=== PATIENT | female | born 2000 | race Two or more races ===

== ENCOUNTER 2024-06-12 02:18 | Inpatient (IN) | payer OTHER, SELFPAY ==
--- OUTSIDE RECORDS SUMMARY | 2024-06-12 02:25 | XMS_ITS | Encounter Summary ---
Author Organization [facility] r Address [address] [place] [address] Phone Care Team Providers Care Electronic Service Technician Name Role Phone Yin Keen MD, MPH Unavailable [phone] Pcp-Confirmed, No Primary Care Provider Unavaila Tj Villagran DO Primary Care Provider [phone] Rochelle Neville MD Unavailable Reason for Visit * Reason Onset Date Comments Medication Refill 10/15/2022 Encounter Details Date Type Department Care Team (Late st Contact Info) Description 10/15/2022 Refill [facility] [address] [place] [address] [place] [address] Breakthrough seizure Social History Tobacco Use Types Packs/Day Years Used Date Smoking Tobacco: Unknown Housing Answer Date Recorded What is your living situation today? I have a [facility] [employer] [employer] place to live 09/24/2022 Sex and Gender Information Value Date Recorded Sex Assigned at Female 07/18/2022 1:14 PM EDT Gender Identity Female 10/08/2022 11:00 AM EDT Sexual Orientation Patient chooses not to answer 04/30/2023 3:04 PM EST documented as of this encounter Miscellaneous Notes * Telephone Encounter - Erin Hill CPhT - 10/15/2022 4:01 PM EDT Veronica, This patient is enrolled in Specialty Care Management. If appropriate, can you please send refills to [facility]? Thank You, Erin Hill documented in this encounter Plan of Treatment Upcoming Encounters Date Type Department Care Team (Late st Contact Info) Description 09/09/2024 1:40 PM EDT Office Visit Cardiology [address] [place] [address] 3 [place] [phone] Leoncio Andrews MD, MPH 7[address] [facility], 3rd [place] [phone] documented as of this encounter Visit Diagnoses Diagnosis Breakthrough seizure documented in this encounter Care Teams Electronic Service Technician Relationship Specialty Start Date End Date Yin Keen MD, MPH [address] [facility] [place] [address] [place] [phone] PCP - Insurance 01/10/22 09/07/23 Pcp-Confirmed, No PCP - General 02/07/23 09/06/23 Tj Guerrero DO [place], [place] PCP - General Family Medicine 09/07/23 Rochelle Neville MD [place], [place] PCP - Insurance Family Medicine 09/08/23 documented as of this encounter
--- OUTSIDE RECORDS SUMMARY | 2024-06-12 02:25 | XMS_ITS | Encounter Summary ---
Author Organization [facility] Address 1 [place] [address] Phone Care Team Providers Care Marketing Content Specialist Name Role Phone Tj Guerrero DO Primary Care Provider Rochelle Neville MD Unavailable Reason for Visit * Reason Onset Date Comments Other Clinical 12/15/2023 Encounter Details Date Type Department Care Team (Late st Contact Info) Description 12/15/2023 Telephone Family Medicine [address] [place] [address] [place] [address] Other Clinical Social History Tobacco Use Types Packs/Day Years Used Date Smoking Tobacco: Never Smokeless Tobacco: Never Alcohol Use Standard Drinks/Week Comments Never 0 (1 standard drink = 0.6 oz pur e alcohol) Housing Answer Date Recorded What is your living situation today? I have a [facility] place to live 11/11/2023 Sex and Gender Information Value Date Recorded Sex Assigned at Female 07/18/2022 1:14 PM EDT Gender Identity Female 10/08/2022 11:00 AM EDT Sexual Orientation Patient chooses not to answer 04/30/2023 3:04 PM EST documented as of this encounter Miscellaneous Notes * Telephone Encounter - Antonella Gong RN - 12/15/2023 11:25 AM EDT Message to PCP and the CCM Team to review and determine plan Future Appointments Date Time Provider Department Center 12/23/2023 11:20 AM Tj Guerrero DO INTERNET ASSESSOR FAM MED None 09/09/2024 1:40 PM Leoncio Andrews MD, MPH PRE CARDIO None * Telephone Encounter - Janet Lazaro - 12/15/2023 11:05 AM EDT Patient Reported Reason for Call Patient presents with Other Clinical Fact Finding Questions Reason for call comments field updated: Yes [facility] is calling to update pt's PCP that a nurse went to visit pt and was told amanda and that she didn't need any VNA services. If there are any questions regarding this matter call CB [phone] documented in this encounter Plan of Treatment Upcoming Encounters Date Type Department Care Team (Late st Contact Info) Description 09/09/2024 1:40 PM EDT Office Visit Cardiology 732 [facility] 3 [place] [phone] Loencio Andrews MD, MPH 732 [facility], 3rd [place] [phone] documented as of this encounter Visit Diagnoses Not on filedocumented in this encounter Care Teams Marketing Content Specialist Relationship Specialty Start Date End Date Tj Guerrero DO [address] [facility] [address] [place], [place] PCP - General Family Medicine 09/07/23 Rochelle Neville MD [place] [phone] PCP - Insurance Family Medicine 09/08/23 documented as of this encounter
--- OUTSIDE RECORDS SUMMARY | 2024-06-12 02:25 | XMS_ITS | Encounter Summary ---
Author Organization [facility] r Address 1 [place] [address] Phone Care Team Providers Care Center Hole Reamer Name Role Phone Tj Guerrero DO Primary Care Provider [phone] Rochelle Neville MD Unavailable Encounter Details Date Type Department Care Team (Late Contact Info) Description 01/05/2024 Telephone Family Medicine [address] [place] [address] [place] [address] Social History Tobacco Use Types Packs/Day Years Used Date Smoking Tobacco: Never Smokeless Tobacco: Never Alcohol Use Standard Drinks/Week Comments Never 0 (1 standard drink = 0.6 oz pur e alcohol) Housing Answer Date Recorded What is your living situation today? I have a [facility] place to live 11/11/2023 Sex and Gender Information Value Date Recorded Sex Assigned at Female 07/18/2022 1:14 PM EDT Gender Identity Female 10/08/2022 11:00 AM EDT Sexual Orientation Patient chooses not to answer 04/30/2023 3:04 PM EST documented as of this encounter Miscellaneous Notes * Telephone Encounter - Nathan King - 01/05/2024 1:28 PM EDT On 01/05/2024 after spending over two hours with [employer], patient was not granted for transportation services, because their reasons was not clear after confirming all patient information was up to date. [place] a result with [place] [id number] patient will seek help through [facility] in [place] to contact [facility] again, to have a good reason why she was not granted transportation services to her appointments. Patient is a green card keyes and I confirmed that with [employer] to. documented in this encounter Plan of Treatment Upcoming Encounters Date Type Department Care Team (Late st Contact Info) Description 09/09/2024 1:40 PM EDT Office Visit Cardiology 732 [facility] 3 [place] [address] Leoncio Andrews MD, MPH 732 [facility], 3rd [place] [phone] documented as of this encounter Visit Diagnoses Not on filedocumented in this encounter Care Teams Center Hole Reamer Relationship Specialty Start Date [place] [address] PCP - General Family Medicine 09/07/23 [place] [address] PCP - Insurance Family Medicine 09/08/23 documented as of this encounter
--- OUTSIDE RECORDS SUMMARY | 2024-06-12 02:25 | XMS_ITS | Encounter Summary ---
Author Organization [facility] Address 1 [place] [address] Phone Care Team Providers Care Supervisor Filtration Name Role Phone YolandaTj Primary Care Provider [phone] Rochelle Neville MD Unavailable Reason for Visit * Reason Onset Date Comments Forms 04/16/2024 Encounter Details Date Type Department Care Team (Late st Contact Info) Description 04/16/2024 Telephone Family Medicine [address] [place] [address] Pcp-Confirmed, No Forms Social History Tobacco Use Types Packs/Day Years Used Date Smoking Tobacco: Never Smokeless Tobacco: Never Alcohol Use Standard Drinks/Week Comments Never 0 (1 standard drink = 0.6 oz pur e alcohol) Housing Answer Date Recorded What is your living situation today? I have a [facility] place to live 02/18/2024 Medications Answer Date Recorded Do you have trouble paying for prescriptions? No 02/18/2024 Utilities Answer Date Recorded Do you have trouble paying f or utilites (heat, electricity, internet, or phone bill)? No 02/18/2024 Caregiving [place] Answer Date Recorded Taking care of a child, elder, or disabled perso n No 02/18/2024 Employment Answer Date Recorded Looking for a job, changing jobs, or getting job training No 02/18/2024 Education Answer Date Recorded Getting more education or he lp with school (early child education under 5 years old, high school diploma or GED, college level education) No 02/18/2024 Food Answer Date Recorded Within the past 12 months, w ere you worried whether your food would run out before you got money to buy more? Never true 1 04/20/2023 Within the past 12 months, d id the food you bought just didn't last and you didn't have money to get more? Never true 01/2024 Transportation Answer Date Recorded Do you have trouble getting transportation to medical appointments? No 02/18/2024 Social Support Answer Date Recorded Getting more education or he lp with school (early child education under 5 years old, high school diploma or GED, college level education) No 02/18/2024 Immigration Answer Date Recorded Accessing resources to address immigration needs No 02/18/2024 Finance Answer Date Recorded Managing or growing your mon ey (open a bank account, file taxes, save money, improve credit, buy a house)? No 02/18/2024 Technology Answer Date Recorded Using a computer or phone to manage your health (use [employer], see medical records, make appointments, get refills, message care team) No 02/18/2024 Sex and Gender Information Value Date Recorded Sex Assigned at Female 07/18/2022 1:14 PM EDT Gender Identity Female 10/08/2022 11:00 AM EDT Sexual Orientation Patient chooses not to answer 04/30/2023 3:04 PM EST documented as of this encounter Miscellaneous Notes * Telephone Encounter - Martine Carney - 04/16/2024 4:24 PM EST Patient Reported Reason for Call Patient presents with Forms Fact Finding Questions Type of form requested: Disability How was form received: in person Preferred method for return: mail Pt can be reached at [phone]./Jerri mclaughlin. Notes she will be dropping of the Disability this Friday Pt will like a call back when form is ready for parts picker. Due 05/05/24. Adv 14 dyays documented in this encounter Plan of Treatment Upcoming Encounters Date Type Department Care Team (Late st Contact Info) Description 09/09/2024 1:40 PM EDT Office Visit Cardiology 732 [facility] 3 [place] [address] Leoncio Andrews MD, MPH 732 [facility], 3rd [place] [address] documented as of this encounter Visit Diagnoses Not on filedocumented in this encounter Care Teams Supervisor Filtration Relationship Specialty Start Date [place] [address] PCP - General Family Medicine 09/07/23 [place] [address] PCP - Insurance Family Medicine 09/08/23 documented as of this encounter
--- OUTSIDE RECORDS SUMMARY | 2024-06-12 02:25 | XMS_ITS | Encounter Summary ---
Author Organization [facility] Address 1 [place] [address] Phone Care Team Providers Care Emergency Medicine Physician Assistant Name Role Phone YolandaTj Primary Care Provider Rochelle Neville MD Unavailable Reason for Visit * Reason Onset Date Comments Appointment 02/03/2024 Encounter Details Date Type Department Care Team ([facility] Contact Info) Description 02/03/2024 Telephone Pediatric Neurology 801 [facility], Floor 7 [place] [address] Kain Scott MD [address] [phone] Appointment Social History Tobacco Use Types Packs/Day Years Used Date Smoking Tobacco: Never Smokeless Tobacco: Never Alcohol Use Standard Drinks/Week Comments Never 0 (1 standard drink = 0.6 oz pur e alcohol) Housing Answer Date Recorded What is your living situation today? I have a [facility] place to live 11/11/2023 Sex and Gender Information Value Date Recorded Sex Assigned at Female 07/18/2022 1:14 PM EDT Gender Identity Female 10/08/2022 11:00 AM EDT Sexual Orientation Patient chooses not to answer 04/30/2023 3:04 PM EST documented as of this encounter Miscellaneous Notes * Telephone Encounter - Argentina Guzmán - 02/03/2024 2:24 PM EST Patient Reported Reason for Call Patient presents with Appointment Patient's parent calling to schedule an appointment Please assist Can be reached at [phone] Adv of tat documented in this encounter Plan of Treatment Upcoming Encounters Date Type Department Care Team (Late st Contact Info) Description 09/09/2024 1:40 PM EDT Office Visit Cardiology 732 [facility] 3 [place] [phone] Leoncio Andrews MD, MPH 732 [facility], 3rd [place] [phone] documented as of this encounter Visit Diagnoses Not on filedocumented in this encounter Care Teams Emergency Medicine Physician Assistant Relationship Specialty Start Date End Date [place] [address] PCP - General Family Medicine 09/07/23 [place] [address] PCP - Insurance Family Medicine 09/08/23 documented as of this encounter
--- OUTSIDE RECORDS SUMMARY | 2024-06-12 02:25 | XMS_ITS | Encounter Summary ---
Author Organization [facility] r Address 1 [place] [address] Phone Care Team Providers Care Plater Supervisor Name Role Phone Yin Keen MD, MPH Unavailable [phone] Pcp-Confirmed, No Primary Care Provider Unavaila Tj Villagran DO Primary Care Provider [phone] Rochelle Neville MD Unavailable Reason for Visit * Reason Onset Date Comments Medication Refill 11/21/2022 Encounter Details Date Type Department Care Team (Late st Contact Info) Description 11/21/2022 Refill [facility] [address] [place] [address] Erin Hill, assistant [place] [address] Social History Tobacco Use Types Packs/Day Years Used Date Smoking Tobacco: Unknown Housing Answer Date Recorded What is your living situation today? I have a [facility] place to live 09/24/2022 Sex and Gender Information Value Date Recorded Sex Assigned at Female 07/18/2022 1:14 PM EDT Gender Identity Female 10/08/2022 11:00 AM EDT Sexual Orientation Patient chooses not to answer 04/30/2023 3:04 PM EST documented as of this encounter Miscellaneous Notes * Telephone Encounter - Erin Hill CPhT - 11/25/2022 2:02 PM EDT Clemente Moore, Can the keppra please be removed from the patients med list if they are no longer taking it? Thank you, Erin * Telephone Encounter - Teresa Best RN - 11/21/2022 3:44 PM EDT No longer on Keppra per last note Impression: -As did not keppra for one month will stop it -. ?? * Telephone Encounter - Erin Hill CPhT - 11/21/2022 2:53 PM EDT Veronica, This patient is enrolled in Specialty Care Management. If appropriate, can you please send refills to [facility]? Thank You, Erin Hill documented in this encounter Plan of Treatment Upcoming Encounters Date Type Department Care Team (Late st Contact Info) Description 09/09/2024 1:40 PM EDT Office Visit Cardiology 732 [facility] 3 [place] [address] Leoncio Andrews MD, MPH [address] [facility], 3rd [place] [address] documented as of this encounter Visit Diagnoses Not on filedocumented in this encounter Care Teams Plater Supervisor Relationship Specialty Start Date End Date Yin Keen MD, MPH [address] [facility] [address] [address] [place] - [place] [phone] PCP - Insurance 01/10/22 09/07/23 Pcp-Confirmed, No PCP - General 02/07/23 09/06/23 [place] [address] PCP - General Family Medicine 09/07/23 [place] [address] PCP - Insurance Family Medicine 09/08/23 documented as of this encounter
--- OUTSIDE RECORDS SUMMARY | 2024-06-12 02:25 | XMS_ITS | Encounter Summary ---
Author Organization [facility] Address 1 [place] [address] Phone Care Team Providers Care Parts Puller Name Role Phone YolandaTj Primary Care Provider [phone] Rochelle Neville MD Unavailable Reason for Visit * Reason Onset Date Comments Appointment 12/10/2023 Encounter Details Date Type Department Care Team ([facility] Contact Info) Description 12/10/2023 Telephone Pediatric Neurology 801 [facility], Floor 7 [place] [address] Kain Scott MD [address] [phone] Appointment Social History Tobacco Use Types Packs/Day Years Used Date Smoking Tobacco: Never Smokeless Tobacco: Never Alcohol Use Standard Drinks/Week Comments Never 0 (1 standard drink = 0.6 oz pur e alcohol) Housing Answer Date Recorded What is your living situation today? I have a [facility] place to live 11/11/2023 Sex and Gender Information Value Date Recorded Sex Assigned at Female 07/18/2022 1:14 PM EDT Gender Identity Female 10/08/2022 11:00 AM EDT Sexual Orientation Patient chooses not to answer 04/30/2023 3:04 PM EST documented as of this encounter Miscellaneous Notes * Telephone Encounter - Dedra Chenesias - 12/10/2023 11:42 AM EDT Patient Reported Reason for Call Patient presents with Appointment Pt is calling in to reschedule the appt she missed on 12/03 Adv tat documented in this encounter Plan of Treatment Upcoming Encounters Date Type Department Care Team (Late st Contact Info) Description 09/09/2024 1:40 PM EDT Office Visit Cardiology 732 [facility] 3 [place] [phone] Leoncio Andrews MD, MPH 732 [facility], [address]rd [place] [phone] documented as of this encounter Visit Diagnoses Not on filedocumented in this encounter Care Teams Parts Puller Relationship Specialty Start Date [place] [address] PCP - General Family Medicine 09/07/23 [place] [address] PCP - Insurance Family Medicine 09/08/23 documented as of this encounter
--- OUTSIDE RECORDS SUMMARY | 2024-06-12 02:25 | XMS_ITS | Encounter Summary ---
Author Organization [facility] r Address 1 [place] [address] Phone Care Team Providers Care Role Player Name Role Phone Tj Guerrero DO Primary Care Provider Rochelle Neville MD Unavailable Encounter Details Date Type Department Care Team (Late st Contact Info) Description 05/12/2024 Telephone General Internal Medicine - [place] [address] [place] [address] [address] [place] [address] [place] [address] Social History Tobacco Use Types Packs/Day Years Used Date Smoking Tobacco: Never Smokeless Tobacco: Never Alcohol Use Standard Drinks/Week Comments Never 0 (1 standard drink = 0.6 oz pur e alcohol) Housing Answer Date Recorded What is your living situation today? I have a [facility] place to live 02/18/2024 Medications Answer Date Recorded Do you have trouble paying for prescriptions? No 02/18/2024 Utilities Answer Date Recorded Do you have trouble paying f or utilites (heat, electricity, internet, or phone bill)? No 02/18/2024 Caregiving [place] Answer Date Recorded Taking care of a child, elder, or disabled maryo n No 02/18/2024 Employment Answer Date Recorded [...] or phone to manage your health (use [employer], see medical records, make appointments, get refills, message care team) No 02/18/2024 Sex and Gender Information Value Date Recorded Sex Assigned at Female 07/18/2022 1:14 PM EDT Gender Identity Female 10/08/2022 11:00 AM EDT Sexual Orientation Patient chooses not to answer 04/30/2023 3:04 PM EST documented as of this encounter Miscellaneous Notes * Telephone Encounter - Shree Delgado CPhT - 05/26/2024 2:09 PM EDT [facility] Medication Access Follow-Up Patient picked up their 90-day prescription for their multivitamin from [facility]. Follow-Up: N/A Shree Delgado CPhT * Telephone Encounter - Shree Delgado CPhT - 05/17/2024 3:59 PM EDT [facility] Medication Access Follow-Up Patient's prescription for epidiolex was delivered to them from [facility] via [employer] (tracking number: [id number]). Patient was called and left a voicemail informing them that their prescription for multivitamin is ready for pickup at their [facility]. Follow-Up: Will ensure med access by 05-25-24 Shree Delgado CPhT * Telephone Encounter - Shree Delgado CPhT - 05/12/2024 2:02 PM EST [facility] [place] Medication Adherence Outreach Appointment Review: Appointments between 04-13-24 and 05-12-24 Medication-Related Follow-Up Points: New Medications: N/A Changed Medications: N/A Discontinued Medications: N/A Were medication changes communicated with pharmacy? N/A Prescription Claims Review: Claims history suggests bolded medications below are scheduled medications that are overdue for refill: Current Outpatient Medications Medication Sig Dispense Refill Last Fill Date Comments cannabidiol extract (EPIDIOLEX) 100 mg/mL oral solution TAKE 0.5ML BY MOUTH TWICE A DAY FOR ONE WEEK, 1ML TWICE A DAY FOR 1 WEEK, 1.5ML TWICE A DAY FOR 1 WEEK, THEN 2ML TWICE A DAY 120 mL 0 02-25-24, [facility], 30 day supply cholecalciferol (VITAMIN D3) 25 mcg (1000 unit) tablet Take 1 tablet (1,000 Units total) by mouth daily. 90 tablet 05-05-24, [facility] ([phone]), 90 day supply diclofenac (VOLTAREN) 1% gel Apply 4 g topically 4 (four) times a day. Apply to neck and shoulders. 100 g 2 03-04-24, [facility], 6 day supply Acute med divalproex (DEPAKOTE) [address] tablet Take 1 tablet (500 mg total) by mouth nightly. October refill 30 tablet 05-07-24, [facility] ([phone]), 30 day supply folic acid, vitamin B9, (FOLVITE) 1 mg tablet Take 1 tablet (1 mg total) by mouth daily. 90 tablet 05-07-24, [facility] ([phone]), 90 day supply lacosamide 200 mg Tab Take 200 mg by mouth 2 (two) times a day. 60 tablet 05-07-24, [facility] ([phone]), 30 day supply levETIRAcetam (KEPPRA) 1000 MG tablet Take 2 tablets (2,000 mg total) by mouth 2 (two) times a day. 120 tablet 05-05-24, [facility] ([phone]), 30 day supply midazolam (NAYZILAM) 5 mg/spray (0.1 mL) [place] 1 spray as a single dose in 1 nostril as needed for seizure; may repeat same dose in 10 minutes in alternate nostril 2 each 05-07-24, [facility] ([phone]), 6 day supply PRN multivitamin (THERAGRAN) per tablet Take 1 tablet by mouth daily. 90 tablet 2 01-08-24, [facility], day supply QUEtiapine (SEROQUEL) 25 MG tablet Take 1 tablet (25 mg total) by mouth 2 (two) times a day. Octoberrefill 60 tablet 05-05-24, [facility] ([phone]), 30 day supply zonisamide 100 MG capsule Take 2 capsule (200 mg) by mouth at night 60 capsule 05-05-24, [facility] ([phone]), 30 day supply No current facility-administered medications for this visit. Per review of [facility] medication history, the following prescriptions have been filled within the past 30 days, however medication is not on [facility] med list: N/A Outreach: Patient verified their address and date of . [facility] was emailed in order to process the patient's prescription for Epidolex. Prescription for multivitamin will be requested. Follow-Up: Will ensure med access by 05-18-24 Shree Delgado CPhT documented in this encounter Plan of Treatment Upcoming Encounters Date Type Department Care Team (Late st Contact Info) Description 09/09/2024 1:40 PM EDT Office Visit Cardiology 732 [facility] 3 [place] [address] Leoncio Andrews MD, MPH 732 [facility], [address] [place] [phone] documented as of this encounter Visit Diagnoses Not on filedocumented in this encounter Care Teams Role Player Relationship Specialty Start Date End [place] [address] PCP - General Family Medicine 09/07/23 [place] [address] PCP - Insurance Family Medicine 09/08/23 documented as of this encounter
--- OUTSIDE RECORDS SUMMARY | 2024-06-12 02:25 | XMS_ITS | Encounter Summary ---
Author Organization [facility] Address 1 [place] [address] Phone Care Team Providers Care Press Setup Operator Name Role Phone Yin Keen MD, MPH Unavailable [phone] Pcp-Confirmed, No Primary Care Provider Unavaila Tj Villagran DO Primary Care Provider [phone] Rochelle Neville MD Unavailable Reason for Visit * Reason Onset Date Comments Medication Refill 02/19/2023 Lacosamide Encounter Details Date Type Department Care Team (Late st Contact Info) Description 02/19/2023 Telephone Family Medicine [address] [place] [address] Rafa Linder RPh Medication Refill (Lacosamide) Social History Tobacco Use Types Packs/Day Years Used Date Smoking Tobacco: Unknown Housing Answer Date Recorded What is your living situation today? I have a [facility] place to live 02/13/2023 Sex and Gender Information Value Date Recorded Sex Assigned at Female 07/18/2022 1:14 PM EDT Gender Identity Female 10/08/2022 11:00 AM EDT Sexual Orientation Patient chooses not to answer 04/30/2023 3:04 PM EST documented as of this encounter Miscellaneous Notes * Telephone Encounter - Rafa Linder RPh - 02/19/2023 4:38 PM EST Pharmacy requesting new order for lacosamide. Per [facility] transport manager, requested [facility] transfer all patient's prescriptions from [facility] to [facility]. [facility] unable to transfer lacosamide as it is a controlled substance and most recent order has not been filled yet (not eligible for transfer). documented in this encounter Plan of Treatment Upcoming Encounters Date Type Department Care Team (Late st Contact Info) Description 09/09/2024 1:40 PM EDT [facility] [place] [phone] Leoncio Andrews MD, MPH 732 [facility], 3rd [place] [phone] documented as of this encounter Visit Diagnoses Not on filedocumented in this encounter Care Teams Press Setup Operator Relationship Specialty Start Date End Date Yin Keen MD, MPH [address] [place] [address] [place] [phone] PCP - Insurance 01/10/22 09/07/23 Pcp-Confirmed, No PCP - General 02/07/23 09/06/23 Tj Guerrero DO [place], [place] PCP - General Family Medicine 09/07/23 Rochelle Neville MD [place], [place] PCP - Insurance Family Medicine 09/08/23 documented as of this encounter
--- OUTSIDE RECORDS SUMMARY | 2024-06-12 02:25 | XMS_ITS | Encounter Summary ---
Author Organization [facility] r Address 1 [place] [address] Phone Care Team Providers Care Biomedical Equipment Support Specialist Name Role Phone Yin Keen MD, MPH Unavailable [phone] Pcp-Confirmed, No Primary Care Provider Unavaila Tj Villagran DO Primary Care Provider [phone] Rochelle Neville MD Unavailable Encounter Details Date Type Department Care Team (Late st Contact Info) Description 03/19/2023 Patient Outreach [address] [address] [place] [address] Social History Tobacco Use Types Packs/Day Years Used Date Smoking Tobacco: Never Smokeless Tobacco: Never Alcohol Use Standard Drinks/Week Comments Never 0 (1 standard drink = 0.6 oz pur e alcohol) Housing Answer Date Recorded What is your living situation today? I have a [facility] to live 02/13/2023 Sex and Gender Information Value Date Recorded Sex Assigned at Female 07/18/2022 1:14 PM EDT Gender Identity Female 10/08/2022 11:00 AM EDT Sexual Orientation Patient chooses not to answer 04/30/2023 3:04 PM EST documented as of this encounter Plan of Treatment Upcoming Encounters Date Type Department Care Team (Late st Contact Info) Description 09/09/2024 1:40 PM EDT Office Visit Cardiology 732 [facility] FLR 3 [place] [phone] Lenocio Andrews MD, MPH [facility], 3rd [place] [address] documented as of this encounter Visit Diagnoses Not on filedocumented in this encounter Care Teams Biomedical Equipment Support Specialist Relationship Specialty Start Date End Date Yin Keen MD, MPH [address] [place] [address] [place] [address] [place] [phone] PCP - Insurance 01/10/22 09/07/23 Pcp-Confirmed, No PCP - General 02/07/23 09/06/23 [place] [address] PCP - General Family Medicine 09/07/23 [place] [address] PCP - Insurance Family Medicine 09/08/23 documented as of this encounter
--- OUTSIDE RECORDS SUMMARY | 2024-06-12 02:25 | XMS_ITS | Encounter Summary ---
Author Organization [facility] Address 1 [place] [address] Phone Care Team Providers Care Dough Molder Name Role Phone YolandaTj Primary Care Provider [phone] Rochelle Neville MD Unavailable Encounter Details Date Type Department Care Team (Late st Contact Info) Description 11/14/2023 Documentation [facility] DEPARTMENT 1 [place] [phone] Onbase, Scan Social History Tobacco Use Types Packs/Day Years Used Date Smoking Tobacco: Never Smokeless Tobacco: Never Alcohol Use Standard Drinks/Week Comments Never 0 (1 standard drink = 0.6 oz pur e alcohol) Housing Answer Date Recorded What is your living situation today? I have a [facility] place to live 11/11/2023 Sex and Gender [...] 1:40 PM EDT [facility] [address] [facility] [place] [address] Leoncio Andrews MD, MPH 732 [facility], 3rd [place] [address] documented as of this encounter Visit Diagnoses Not on filedocumented in this encounter Care Teams Dough Molder Relationship Specialty Start Date [place] [address] PCP - General Family Medicine 09/07/23 [place] [address] PCP - Insurance Family Medicine 09/08/23 documented as of this encounter
--- OUTSIDE RECORDS SUMMARY | 2024-06-12 02:25 | XMS_ITS | Encounter Summary ---
Author Organization [facility] r Address 1 [place] [address] Phone Care Team Providers Care School Age Lead Teacher Name Role Phone CelsoTj lozoya Primary Care Provider Rochelle Neville MD Unavailable Reason for Visit * Reason Onset Date Comments Other Clinical 12/15/2023 Clinical call Encounter Details Date Type Department Care Team (Late st Contact Info) Description 12/15/2023 Telephone Child & Adolescent Psychiatry [address] [facility], Floor 7 [place] [address] Precious Carrasco, [place] [address] Other Clinical (Clinical call ) Social History Tobacco Use Types Packs/Day Years Used Date Smoking Tobacco: Never Smokeless Tobacco: Never Alcohol Use Standard Drinks/Week Comments Never 0 (1 standard drink = 0.6 oz pur e alcohol) Housing Answer Date Recorded What is your living situation today? [facility] live 11/11/2023 Sex and Gender Information Value Date Recorded Sex Assigned at Female 07/18/2022 1:14 PM EDT Gender Identity Female 10/08/2022 11:00 AM EDT Sexual Orientation Patient chooses not to answer 04/30/2023 3:04 PM EST documented as of this encounter Miscellaneous Notes * Telephone Encounter - Suzanne Suazo - 12/15/2023 11:13 AM EDT Patient Reported Reason for Call Patient presents with Other Clinical Clinical call Fact Finding Questions Reason for call comments field updated: Yes Rodolfo Maher (A) Home health services called looking to speak with Precious Carrasco. Teralaz stated a nurse went to visit pt at her home and pt refused services. Rodolfo would like to connect with Precious Carrasco regarding this and closing out the referral if pt isn't interested. Rodolfo is going to connect with the family medicine department as well to speak with pt pcp. CB# [phone] ADV TAT documented in this encounter Plan of Treatment Upcoming Encounters Date Type Department Care Team (Late st Contact Info) Description 09/09/2024 1:40 PM EDT Office Visit Cardiology [address] [place] [phone] Leoncio Andrews MD, MPH 732 [facility], 3rd [place] [phone] documented as of this encounter Visit Diagnoses Not on filedocumented in this encounter Care Teams School Age Lead Teacher Relationship Specialty Start Date End Date Tj Guerrero DO [place], [place] PCP - General Family Medicine 09/07/23 Rochelle Neville MD [place], [place] PCP - Insurance Family Medicine 09/08/23 documented as of this encounter
--- OUTSIDE RECORDS SUMMARY | 2024-06-12 02:25 | XMS_ITS | Encounter Summary ---
Author Organization [facility] Address 1 [place] [address] Phone Care Team Providers Care Electric Pile Driver Operator Name Role Phone Lupe Hudson PINMAKER Unavailable Unavailable Luis Avila MD Unavailable Lupe Hudson PINMAKER Unavailable Unavailable Travis Bruno MD Unavailable Travis Bruno MD Unavailable Yin Keen MD, MPH Unavailable [phone] Pcp-Confirmed, No Primary Care Provider Unavaila Tj Villagran DO Primary Care Provider [phone] Rochelle Neville MD Unavailable Reason for Visit * Reason Comments Automated Refill Request Encounter Details Date Type Department Care Team (Late st Contact Info) Description 02/08/2021 Refill [facility] [address] [place] [address] Elodia Justice MD Social History Tobacco Use Types Packs/Day Years Used Date Smoking Tobacco: Unknown Sex and Gender Information Value Date Recorded Sex Assigned at Female 07/18/2022 1:14 PM EDT Gender Identity Female 10/08/2022 11:00 AM EDT Sexual Orientation Patient chooses not to answer 04/30/2023 3:04 PM EST COVID-19 Exposure Response Date Recorded In the last month, have you been in contact with someone who was confirmed or suspected to have Coronavirus / COVID-19? No / Unsure 02/07/2021 12:46 PM EST documented as of this encounter Miscellaneous Notes * Telephone Encounter - Karin Pena RN - 02/08/2021 3:32 PM EST Script written while inpatient; Not PCP documented in this encounter Plan of Treatment Upcoming Encounters Date Type Department Care Team ([facility] st Contact Info) Description 09/09/2024 1:40 PM EDT Office Visit Cardiology 732 [facility] 3 [place] [address] Leoncio Andrews MD, MPH 732 [facility], 3rd [place] [address] documented as of this encounter Visit Diagnoses Not on filedocumented in this encounter Additional Health Concerns Infection Onset Date Last Indicated Resolved Time COVID-19 Rule Out 02/27/2021 02/27/2021 02/27/2021 10:10 PM EST COVID-19 Rule Out 12/26/2021 12/26/2021 12/26/2021 4:12 AM EDT documented as of this encounter Care Teams Electric Pile Driver Operator Relationship Specialty Start Date End Date Lupe Hudson NP PCP - Insurance 01/31/21 02/12/21 Luis Avila MD [address] [place] [phone] PCP - Insurance 02/13/21 05/06/21 Lupe Hudson NP PCP - Insurance 05/07/21 07/10/21 Travis Bruno MD 732 [facility], [address] [place] [phone] PCP - Insurance 07/11/21 11/21/21 Travis Bruno MD 732 [facility], [address] [place] [phone] PCP - Insurance 11/28/21 01/09/22 Yin Keen MD, MPH [address] [place] [address] - [place] [address] PCP - Insurance 01/10/22 09/07/23 Pcp-Confirmed, No PCP - General 02/07/23 09/06/23 [place] [address] PCP - General Family Medicine 09/07/23 [place] [address] PCP - Insurance Family Medicine 09/08/23 documented as of this encounter
--- OUTSIDE RECORDS SUMMARY | 2024-06-12 02:25 | XMS_ITS | Encounter Summary ---
Author Organization [facility] Address 1 [place] [address] Phone Care Team Providers Care Counter Clerk Name Role Phone Yin Keen MD, MPH Unavailable [phone] Pcp-Confirmed, No Primary Care Provider Unavaila Tj Villagran DO Primary Care Provider [phone] Rochelle Neville MD Unavailable Reason for Visit * Reason Onset Date Comments Medication Refill 11/18/2022 Encounter Details Date Type Department Care Team (Late st Contact Info) Description 11/18/2022 Refill [facility] Department [address] [place] [address] Tahmina Campo MD Social History Tobacco Use Types Packs/Day Years Used Date Smoking Tobacco: Unknown Housing Answer Date Recorded What is your living situation today? I have a [facility] place to live 09/24/2022 Sex and Gender [...] 1:40 PM EDT Office Visit Cardiology 732 [facility] 3 [place] [phone] Leoncio Andrews MD, MPH 732 [facility], 3rd [place] [phone] documented as of this encounter Visit Diagnoses Not on filedocumented in this encounter Care Teams Counter Clerk Relationship Specialty Start Date End Date Yin Keen MD, MPH [address] [place] [address] [place] [address] [place] [phone] PCP - Insurance 01/10/22 09/07/23 Pcp-Confirmed, No PCP - General 02/07/23 09/06/23 [place] [address] PCP - General Family Medicine 09/07/23 [place] [address] PCP - Insurance Family Medicine 09/08/23 documented as of this encounter
--- OUTSIDE RECORDS SUMMARY | 2024-06-12 02:25 | XMS_ITS | Encounter Summary ---
Author Organization [facility] Address 1 [place] [address] Phone Care Team Providers Care Net Software Engineer Name Role Phone CelsoTj lozoya Primary Care Provider [phone] Rochelle Neville MD Unavailable Encounter Details Date Type Department Care Team (Late st Contact Info) Description 02/09/2024 Telephone Family [place] [address] Teofilo Fox [facility] Social History Tobacco Use Types Packs/Day Years Used Date Smoking Tobacco: Never Smokeless Tobacco: Never Alcohol Use Standard Drinks/Week Comments Never 0 (1 standard drink = 0.6 oz pur e alcohol) Housing Answer Date Recorded What is your living situation today? I have a [facility] place to live 11/11/2023 Sex and [...] 1:40 PM EDT Office Visit Cardiology 732 [facility] 3 [place] [address] Leoncio Andrews MD, MPH 732 [facility], 3rd [place] [address] documented as of this encounter Visit Diagnoses Not on filedocumented in this encounter Care Teams Net Software Engineer Relationship Specialty Start Date End [place] [address] PCP - General Family Medicine 09/07/23 [place] [address] PCP - Insurance Family Medicine 09/08/23 documented as of this encounter
--- OUTSIDE RECORDS SUMMARY | 2024-06-12 02:25 | XMS_ITS | Encounter Summary ---
Author Organization [facility] r Address 1 [place] [address] Phone Care Team Providers Care Fish And Wildlife Scientific Aid Name Role Phone Tj Guerrero DO Primary Care Provider [phone] Rochelle Neville MD Unavailable Reason for Visit * Reason Onset Date Comments Medication Question 01/12/2024 Pt is asking for something for her head. Encounter Details Date Type Department Care Team (Late st Contact Info) Description 01/12/2024 Telephone Family Medicine [address] [place] [address] [place] [address] Medication Question (Pt is asking for something for her head.) Social History Tobacco Use Types Packs/Day Years Used Date Smoking Tobacco: Never Smokeless Tobacco: Never Alcohol Use Standard Drinks/Week Comments Never 0 (1 standard drink = 0.6 oz pur e alcohol) Housing Answer Date Recorded What is your living situation today? I have a [facility] place to live 11/11/2023 Sex and Gender Information Value Date Recorded Sex Assigned at Female 07/18/2022 1:14 PM EDT Gender Identity Female 10/08/2022 11:00 AM EDT Sexual Orientation Patient chooses not to answer 04/30/2023 3:04 PM EST documented as of this encounter Miscellaneous Notes * Telephone Encounter - Nathan Arzola - 01/12/2024 11:59 AM EST Patient Reported Reason for Call Patient presents with Medication Question Pt is asking for something for her head. Aisher is calling stating that pt is looking for something for her head. Not sure what pt wants. Would like someone to call her for clarification. CB pt. [phone] documented in this encounter Plan of Treatment Upcoming Encounters Date Type Department Care Team (Late st Contact Info) Description 09/09/2024 1:40 PM EDT [facility] [place] [phone] Leoncio Andrews MD, MPH 732 [facility], 3rd [place] [phone] documented as of this encounter Visit Diagnoses Not on filedocumented in this encounter Care Teams Fish And Wildlife Scientific Aid Relationship Specialty Start Date End [place] [address] PCP - General Family Medicine 09/07/23 Rochelle Neville MD [place], [place] PCP - Insurance Family Medicine 09/08/23 documented as of this encounter
--- OUTSIDE RECORDS SUMMARY | 2024-06-12 02:25 | XMS_ITS | Encounter Summary ---
Author Organization [facility] r Address [address] [place] [address] Phone Care Team Providers Care Furnace And Wash Equipment Operator Name Role Phone Yin Keen MD, MPH Unavailable [phone] Pcp-Confirmed, No Primary Care Provider Unavaila Tj Villagran DO Primary Care Provider [phone] Rochelle Neville MD Unavailable Reason for Visit * Reason Onset Date Comments Appointment 10/25/2022 Encounter Details Date Type Department Care Team (Late st Contact Info) Description 10/25/2022 Telephone [facility] [address] [facility] Building (8th and 9th Floors) [place] [address] [place] [address] Appointment Social History Tobacco Use Types Packs/Day Years Used Date Smoking Tobacco: Unknown Housing Answer Date Recorded What is your living situation today? I have a [facility] to live 09/24/2022 Sex and Gender Information Value Date Recorded Sex Assigned at Female 07/18/2022 1:14 PM EDT Gender Identity Female 10/08/2022 11:00 AM EDT Sexual Orientation Patient chooses not to answer 04/30/2023 3:04 PM EST documented as of this encounter Miscellaneous Notes * Telephone Encounter - Noy Coyle - 10/25/2022 12:07 PM EDT Patient Reported Reason for Call Patient presents with ??? Appointment Patient is looking to speak with a resource school social worker. It would be in regards to receiving helpwith housing (health home care attendant) and SNAP assistance. She has been trying to get help since last month but has not been successful. Speaks suzanne sneed # [phone] documented in this encounter Plan of Treatment Upcoming Encounters Date Type Department Care Team (Late st Contact Info) Description 09/09/2024 1:40 PM EDT Office Visit Cardiology [address] [phone] Leoncio Andrews MD, MPH [address] [facility], 3rd [place] [phone] documented as of this encounter Visit Diagnoses Not on filedocumented in this encounter Care Teams Furnace And Wash Equipment Operator Relationship Specialty Start Date End Date Yin Keen MD, MPH [address] [place] [address] - [place] [phone] PCP - Insurance 01/10/22 09/07/23 Pcp-Confirmed, No PCP - General 02/07/23 09/06/23 Tj Geurrero DO [address] [facility] [place] [address] PCP - General Family Medicine 09/07/23 Rochelle Neville MD [address] [facility] [place] [address] PCP - Insurance Family Medicine 09/08/23 documented as of this encounter
--- OUTSIDE RECORDS SUMMARY | 2024-06-12 02:25 | XMS_ITS | Encounter Summary ---
Author Organization [facility] Address 1 [place] [address] Phone Care Team Providers Care Continuous Still Operator Name Role Phone Yin Keen MD, MPH Unavailable [phone] Pcp-Confirmed, No Primary Care Provider Unavaila ble Tj Guerrero DO Primary Care Provider [phone] Rochelle Neville MD Unavailable Reason for Visit * Reason Onset Date Comments Forms And Faxes 05/19/2023 Encounter Details Date Type Department Care Team (Late st Contact Info) Description 05/19/2023 Telephone Family Medicine [address] [place] [address] [place] [address] Forms And Faxes Social History Tobacco Use Types Packs/Day Years Used Date Smoking Tobacco: Never Smokeless Tobacco: Never Alcohol Use Standard Drinks/Week Comments Never 0 (1 standard drink = 0.6 oz pur e alcohol) Housing Answer Date Recorded What is your living situation today? I have a [facility] place to live 02/13/2023 Sex and Gender Information Value Date Recorded Sex Assigned at Female 07/18/2022 1:14 PM EDT Gender Identity Female 10/08/2022 11:00 AM EDT Sexual Orientation Patient chooses not to answer 04/30/2023 3:04 PM EST documented as of this encounter Miscellaneous Notes * Telephone Encounter - Valemaykel Travisock - 05/19/2023 2:36 PM EDT Patient Reported Reason for Call Patient presents with ??? Forms And Faxes Fact Finding Questions How was form received: by fax Preferred method for return: fax Rodolfo [phone] [facility] stating she faxed over on 05/15/2023 form for med list, progress notes, to continue services, tat 14 business days documented in this encounter Plan of Treatment Upcoming Encounters Date Type Department Care Team (Late st Contact Info) Description 09/09/2024 1:40 PM EDT Office Visit Cardiology [address] [place] [address] [address] [place] [address] Leoncio Andrews MD, MPH 732 [facility], 3rd [place] [address] documented as of this encounter Visit Diagnoses Not on filedocumented in this encounter Care Teams Continuous Still Operator Relationship Specialty Start Date End Date Yin Keen MD, MPH [address] [place] [address] [facility] [address] [place] [phone] PCP - Insurance 01/10/22 09/07/23 Pcp-Confirmed, No PCP - General 02/07/23 09/06/23 Tj Guerrero DO [address] [facility] [place] [address] PCP - General Family Medicine 09/07/23 Rochelle Neville MD [address] [facility] [place] [address] PCP - Insurance Family Medicine 09/08/23 documented as of this encounter
--- OUTSIDE RECORDS SUMMARY | 2024-06-12 02:26 | XMS_ITS | Encounter Summary ---
Author Organization [facility] r Address 1 [place] [address] Phone Care Team Providers Care Urban Gardening Specialist Name Role Phone Tj Guerrero DO Primary Care Provider Rochelle Neville MD Unavailable Encounter Details Date Type Department Care Team (Late st Contact Info) Description 09/10/2023 Telephone Family Medicine [address] [place] [address] [place] [address] Social History Tobacco Use Types Packs/Day Years Used Date Smoking Tobacco: Never Smokeless Tobacco: Never Alcohol Use Standard Drinks/Week Comments Never 0 (1 standard drink = 0.6 oz pur e alcohol) Housing Answer Date Recorded What is your living situation today? I have a [facility] place to live 02/13/2023 Sex and [...] Office Visit Cardiology 732 [facility] 3 [place] [address] Leoncio Andrews MD, MPH 732 [facility], 3rd [place] [phone] documented as of this encounter Visit Diagnoses Not on filedocumented in this encounter Care Teams Urban Gardening Specialist Relationship Specialty Start Date End Date [place] [address] PCP - General Family Medicine 09/07/23 [place] [address] PCP - Insurance Family Medicine 09/08/23 documented as of this encounter
--- OUTSIDE RECORDS SUMMARY | 2024-06-12 02:26 | XMS_ITS | Encounter Summary ---
Author Organization [facility] Address 1 [place] [address] Phone Care Team Providers Care Ethylene Oxide Panelboard Operator Name Role Phone Yin Keen MD, MPH Unavailable [phone] Pcp-Confirmed, No Primary Care Provider Unavaila Tj Villagran DO Primary Care Provider [phone] Rochelle Neville MD Unavailable Reason for Visit * Reason Onset Date Comments Medication Refill 02/18/2022 Encounter Details Date Type Department Care Team (Late st Contact Info) Description 02/18/2022 [facility]ill [facility] [address] [place] [address] Andrea Miranda DO Social History Tobacco Use Types Packs/Day Years Used Date Smoking Tobacco: Unknown Housing Answer Date Recorded What is your living situation today? I have a [facility] place to live 12/25/2021 Sex and Gender Information Value Date Recorded [...] Office Visit Cardiology 732 [facility] 3 [place] [phone] Leoncio Andrews MD, MPH 732 [facility], 3rd [place] [phone] documented as of this encounter Visit Diagnoses Not on filedocumented in this encounter Care Teams Ethylene Oxide Panelboard Operator Relationship Specialty Start Date End Date Yin Keen MD, MPH [address] [place] [address] [place] [address] [place] - [place] [phone] PCP - Insurance 01/10/22 09/07/23 Pcp-Confirmed, No PCP - General 02/07/23 09/06/23 [place] [address] PCP - General Family Medicine 09/07/23 [place] [address] PCP - Insurance Family Medicine 09/08/23 documented as of this encounter
--- OUTSIDE RECORDS SUMMARY | 2024-06-12 02:26 | XMS_ITS | Clinical Summary ---
Author Organization [facility] Address [address] [place] [address] Care Team Providers Care Rivet Heater Name Role Phone Unavailable Primary Care Provider Unavailabl e Source Comments PLEASE NOTE, if this patient is a minor, it may be UNLAWFUL to discuss sensitive information that is contained in these records (such as FAMILY PLANNING, MENTAL HEALTH or SUBSTANCE ABUSE) with the minor patient's parent or other person without the patient's specific authorization.[facility] Social History Tobacco Use Types Packs/Day Years Used Date Smoking Tobacco: Never Assessed Social Connections Answer Date Recorded Connectedness 0 12/01/2023 Financial Resource Strain Answer Date R ecorded Financial Resource Strain 0 2023 Stress Answer Date Recorded Stress 0 11/07/2023 Physical Activity Answer Date Recorded Physical Activity 0 11/07/2023 Food Insecurity Answer Date Recorded Food 0 12/04/2023 Transportation Needs Answer Date Record ed Transportation 0 11/07/2023 Housing Stability Answer Date Recorded Housing 0 11/07/2023 Safety and Environment Answer Date Rhoit rded Safety 0 11/07/2023 Utilities Answer Date Recorded Utilities 0 11/07/2023 Employment Answer Date Recorded Stress 0 12/01/2023 Comments Unknown Sex and Gender Information Value Date Recorded Sex Assigned at Not on file Legal Sex Female 9:57 AM PST Gender Identity Not on file Sexual Orientation Not on file Plan of Treatment Health Maintenance Due Date Last Done Comments Anxiety Screening 2000 HPV Screening 2000 Hepatitis B Screening 2000 LTBI Screening (#1) 2000 Pap + HPV 2000 Tobacco Screening 2000 Chlamydia Screening 2013 Gonorrhea Screening 2013 Imm-Varicella (1 of 2 - 13+ 2-dose series) 2013 Relationship Safety Screening/Counseling 10/27/2015 Hypertension Screening (#1) 2018 Imm-Hepatitis B (1 of 3 - 19 + 3-dose series) 10/27/2019 Cervical Cancer Screening 2021 Pap Smear 2021 Imm-HPV (2 - 3-dose series) 04/14/2023 03/17/2023 [id number] ( season) 2023 03/17/2023, 03/23/2021, 01/17/2021 Imm-Influenza (#1) 2023 02/10/2023, 01/17/2021 Alcohol and Drug Screen 03/10/2024 Depression Annual Screen 03/10/2024 Imm-DTaP/Tdap/Td (2 - Td or Tdap) 03/17/2033 024 Hepatitis C Screening Completed 02/07/2023 HIV Screening Completed 03/25/2023, 12/10, 01/07/2021 Cervical Ablation/Cold-Knife Conization Discontinued Cervical Cryotherapy Discontinued Colposcopy Discontinued Endometrial Biopsy Discontinued Excision/Leep Discontinued HPV Genotyping Discontinued Vaginal Pap Discontinued Vulvoscopy Discontinued Insurance [facility] Location PLAN Member Subscriber Plan / Payer (Ef fective 2021-Present) Name:Tiffany Soni Relation to Subscriber:Self Name:Tiffany Soni Payer ID:[id number] Group ID:[id number] Type:Medicaid Address: [address] [address] [place] [address] [facility]
--- OUTSIDE RECORDS SUMMARY | 2024-06-12 02:26 | XMS_ITS | Encounter Summary ---
Author Organization [employer] [facility] Address [address] [place] [address] Care Team Providers Care General Farmer Name Role Phone Rubina Judge NP Primary Care Provider [phone] Reason for Referral * Consultation (Routine) - Authorized Specialty Diagnoses / Procedures Referred By Contac t Referred To Contact Physical Therapy Diagnoses Acute midline low back pain, unspecified whether sciatica present Rubina Judge NP [address] [place] [address] Phone: tel: fax: Physical Therapy [facility] [address] [place] [address] Phone: tel: fax: Referral ID Status Reason Start Date Expiration Date Visits Requested Visits Authorized [id number] Authorized Specialty Services Required 06/09/2024 06/09/2025 1 1 * Imaging (Routine) - Pending Review Specialty Diagnoses / Procedures Referred By Contac t Referred To Contact Radiology Diagnoses Acute midline low back pain, unspecified whether sciatica present Procedures XR Lumbar Spine 2-3 Views Rubina Judge NP [address] [place] [address] Phone: tel: fax: Referral ID Status Reason Start Date Expiration Date V isits Requested Visits Authorized [id number] Pending Review 06/09/2024 06/09/2025 1 1 Reason for Visit * Reason Comments hospital f/u Encounter Details Date Type Department Care Team (Late st Contact Info) Description 06/09/2024 12:00 PM EDT Office Visit [facility] MAIN ADULT [address] [place] [address] Rubina Judge NP [address] [place] [address] Acute midline low back pain, unspecified whether sciatica present (Primary Dx); Acute costochondritis; Epilepsy with partial complex seizures, with status epilepticus (CMS/HCC); Family conflict; Noncompliance with medication regimen Social History Tobacco Use Types Packs/Day Years Used Date Smoking Tobacco: Never Passive Smoke Exposure: Never Smokeless Tobacco: Never Alcohol Use Standard Drinks/Week Comments Never 0 (1 standard drink = 0.6 oz pur e alcohol) Depression Answer Date Recorded Patient Health Questionnaire-9 Score 16 06/02/2024 Patient Health Questionnaire-9 Score 16 06/02/2024 Last PHQ-9: Questionnaire Data Not on file 0 06/02/2024 Depression Answer Date Recorded Patient Health Questionnaire-2 Score 6 06/02/2024 Education Answer Date Recorded What is the highest level of school you have completed or the highest degree you have received? 5th grade 05/05/2024 Comments Unknown Sex and Gender Information Value Date Recorded Sex Assigned at Female 04/16/2024 2:04 PM EST Legal Sex Female 3:15 PM EST Gender Identity Female 05/05/2024 12:48 PM EST Sexual Orientation Straight 05/05/2024 12 :48 PM EST documented as of this encounter Last Filed Vital Signs Vital Sign Reading Time Taken Comments Blood Pressure 97/57 06/09/2024 12:07 PM EDT Pulse 79 06/09/2024 12:07 PM EDT Temperature 36.6 ??C (97.8 ??F) 06/09/2024 12:07 PM E DT Respiratory Rate - - Oxygen Saturation 97% 06/09/2024 12:07 PM EDT Inhaled Oxygen Concentration - - Weight 50 kg (110 lb 3.2 oz) 06/09/2024 12:07 PM EDT Height 157.5 cm (5' 2 ) 06/09/2024 12:07 PM EDT Body Mass Index 20.16 06/09/2024 12:07 PM EDT documented in this encounter Progress Notes * Rubina Judge NP - 06/09/2024 12:00 PM EDT [address] [place] [address] [email or web address] Patient's preferred language is; 3 Four 5 Group creole Tipping Machine Operator was present during encounter HPI Patient is a 23 y.o. female who presents today for: Chief complaint Sternum pain, recent seizure with associated falls, and acute low back pain. History of present illness - Previously reported chest pain. - Did not complete the chest X-ray as ordered due to feeling unwell. - Sx improved with paracetamol Seizure - Experienced a seizure on June 04, 2024, leading to a hospital visit in [place]. - Unable to confirm the name of the hospital she previously attended - Fell landing on buttocks, resulting in significant low back pain when sitting or standing. - Reports headache on the day following the fall, relieved with paracetamol. - Denies headache at today's visit - Reports non-adherence to medications including seizure medications. Social history - Family dilemma - Does not want to live with mother and sister - Mother causes stress and nervousness Immunization History Administered Date(s) Administered HPV 9-Valent 05/21/2024 Moderna Covid-19 Vaccine + 01/17/2021, 03/23/2021, 03/17/2023 Pfizer Covid-19 Vaccine + 05/21/2024 Review of Systems Review of Systems Constitutional: Negative. Respiratory: Negative. Negative for chest tightness. Cardiovascular: Positive for chest pain. Negative for palpitations. Musculoskeletal: Positive for back pain. Neurological: Positive for seizures. Medical History No Known Allergies Current Outpatient Medications on File Prior to Visit Medication Sig Dispense Refill cephalexin (Keflex) 250 MG capsule Take 250 mg by mouth 4 times daily. divalproex (Depakote) 500 MG EC tablet Take 1 tablet (500 mg) by mouth at bedtime. Do not crush, chew, or split. 30 tablet 0 folic acid (Folvite) 1 MG tablet Take 1 tablet (1 mg) by mouth Once per day. 90 tablet 1 lacosamide (Vimpat) 200 mg tablet tablet Take 1 tablet (200 mg) by mouth 2 times daily. 60 tablet 1 levETIRAcetam (Keppra) 1000 MG tablet Take 2 tablets (2,000 mg) by mouth every 12 (twelve) hours. 120 tablet 1 Midazolam (Nayzilam) 5 MG/0.1ML solution Administer 0.1 mL (5 mg) into affected nostril(s) if needed (for seizure lasting more than 5 min). May give second dose in other nostril if seizure lasting more than 10 min 2 each 1 zonisamide (Zonegran) 100 MG capsule Take 2 Capsules daily by mouth at bedtime 60 capsule 1 cannabidiol (Epidiolex) 100 MG/ML solution Take 0.5 mL (50 mg) by mouth 2 times daily. (Patient nottaking: Reported on 06/09/2024) 100 mL 0 cholecalciferol (Vitamin D3) 25 MCG (1000 UT) tablet Take 1 tablet (1,000 Units) by mouth Once per day. (Patient not taking: Reported on 06/09/2024) 90 tablet 0 Diclofenac Sodium 1 % gel Apply 4 g topically 4 (four) times a day. Apply to neck and shoulders. 500 g 6 Multiple Vitamin (Multi-Vitamin) tablet Take 1 tablet by mouth daily. (Patient not taking: Reportedon 06/09/2024) 90 tablet 3 QUEtiapine (SEROquel) 25 MG tablet Take 1 tablet (25 mg) by mouth 2 times daily. (Patient not taking: Reported on 06/09/2024) 60 tablet 1 [DISCONTINUED] acetaminophen (Tylenol) 500 MG tablet Take 1 tablet (500 mg) by mouth every 8 (eight) hours if needed for mild pain or moderate pain for up to 10 days. (Patient not taking: Reported on06/09/2024) 30 tablet 0 No current facility-administered medications on file prior to visit. Past Medical History: Diagnosis Date Depression Seizures (CMS/HCC) No past surgical history on file. Family History Problem Relation Name Age of Onset Hypertension Mother Hypertension Father Social History Socioeconomic History Marital status: Single Spouse name: Not on file Number of children: 0 Years of education: Not on file Highest education level: 5th grade Occupational History Not on file Tobacco Use Smoking status: Never Passive exposure: Never Smokeless tobacco: Never Vaping Use Vaping status: Never Used Substance and Sexual Activity Alcohol use: Never Drug use: Never Sexual activity: Yes Partners: Male control/protection: None Other Topics Concern Not on file Social History Narrative Not on file Social Drivers of Health Food Insecurity: Not on File (12/04/2023) Received from [employer] Food Insecurity Food: 0 Transportation Needs: Not on File (11/07/2023) Received from [employer] Transportation Needs Transportation: 0 Intimate Partner Violence: Not on file Housing Stability: Not on File (11/07/2023) Received from [employer] Housing Stability Housin Physical Exam Vitals: 06/09/24 1207 BP: 97/57 BP Location: Left arm Patient Position: Sitting BP Cuff Size: Adult Pulse: 79 Temp: 97.8 ??F (36.6 ??C) TempSrc: Oral SpO2: 97% Weight: 110 lb 3.2 oz (50 kg) Height: 5' 2 (1.575 m) Body mass index is 20.16 kg/m??. Physical Exam Constitutional: Appearance: Normal appearance. HENT: Head: Normocephalic and atraumatic. Cardiovascular: Rate and Rhythm: Normal rate and regular rhythm. Pulses: Normal pulses. Heart sounds: Normal heart sounds. Pulmonary: Effort: Pulmonary effort is normal. Breath sounds: Normal breath sounds. Musculoskeletal: General: Tenderness present. No swelling. Neurological: General: No focal deficit present. Mental Status: She is alert and oriented to person, place, and time. Psychiatric: Mood and Affect: Mood normal. Assessment and Plan Patient is a 23 y.o. female: Diagnoses and all orders for this visit: Acute midline low back pain, unspecified whether sciatica present - lidocaine (Lidoderm) 5 % patch; Apply 1 patch topically Once per day. Remove & discard patch within 12 hours or as directed by MD. - acetaminophen (Tylenol) 500 MG tablet; Take 1 tablet (500 mg) by mouth every 8 (eight) hours if needed for mild pain or moderate pain for up to 10 days. - XR Lumbar Spine 2-3 Views; Future - Referral to Physical Therapy; Future Acute costochondritis Comments: - Costochondritis as a potential cause of chest pain, not suspected to be cardiac-related. EKG: normal. Order CXR for potential rib trauma. schedule f/up Future Appointments Date Time Provider Department Center 06/11/2024 1:30 PM POD 4 RN [facility] 06/15/2024 12:[address] [facility] 06/23/2024 12:40 PM Rubina Judge NP [facility] 07/01/2024 1:00 PM MD RUCHI Onofre NEUR[facility] No follow-ups on file. Supervising Physician: Dr. Omaira Judge NP documented in this encounter Plan of Treatment Upcoming Encounters Date Type Department Care Team (Late st Contact Info) Description 06/23/2024 12:40 PM EDT Office Visit [facility] MAIN ADULT [address] [place] [address] Rubina Judge NP [address] [place] [address] 07/01/2024 1:00 PM EDT Office Visit [facility] MAIN NEUROLOGY [address] [place] [address] Josefa Brown MD [address] [place] [address] Scheduled Orders Name Type Priority Associated Diagnoses Orde r Schedule XR Lumbar Spine 2-3 Views Imaging Routine Acute midline low back pain, unspecified whether sciatica present Expected: 06/09/2024, Expires: 06/09/2025 Scheduled Referrals Name Type Priority Associated Diagnoses Orde r Schedule Referral to Physical Therapy Outpatient Referral Routine Acute midline low back pain, unspecified whether sciatica present Expected: 06/09/2024 (Approximate), Expires: 06/09/2025 documented as of this encounter Visit Diagnoses Diagnosis Acute midline low back pain, unspecified whether sciatica present- Primary Acute costochondritis Epilepsy with partial complex seizures, with status epilepticus ([facility]) Family conflict Unspecified family circumstance Noncompliance with medication regimen Personal history of noncompliance with medical treatment, presenting hazards to health documented in this encounter Additional Health Concerns Assessment Noted Time PHQ-9 Depression Total Score: 16 025 5:57 PM EDT documented as of this encounter Care Teams General Farmer Relationship Specialty Start Date End Date Rubina Judge NP [address] [place] [address] PCP - General Nurse Practitioner 04/21/24 documented as of this encounter
--- OUTSIDE RECORDS SUMMARY | 2024-06-12 02:26 | XMS_ITS | Encounter Summary ---
Author Organization [employer] [facility] Address [address] [facility] [address] [place] [address] Care Team Providers Care Production Machine Shop Supervisor Name Role Phone Rubina Judge NP Primary Care Provider [phone] Encounter Details Date Type Department Care Team (Late st Contact Info) Description 06/09/2024 Population Health Risk Score [facility] () Department [address] [phone] Provider, Population Health Generic Social History Tobacco Use Types Packs/Day Years [...] Description 06/23/2024 12:40 PM EDT Office Visit [facility] MAIN ADULT [address] [place] [address] Rubina Judge NP [address] [place] [address] 07/01/2024 1:00 PM EDT Office Visit [facility] MAIN NEUROLOGY [address] [place] [address] Josefa Brown MD [address] [place] [address] documented as of this encounter Visit Diagnoses Not on filedocumented in this encounter Additional Health Concerns Assessment Noted Time PHQ-9 Depression Total Score: 16 025 5:57 PM EDT documented as of this encounter Care Teams Production Machine Shop Supervisor Relationship Specialty Start Date End Date Rubina Judge NP [address] [place] [address] PCP - General Nurse Practitioner 04/21/24 documented as of this encounter
--- OUTSIDE RECORDS SUMMARY | 2024-06-12 02:26 | XMS_ITS ---
Author Organization [facility] Location Address [address] [place] [id number] Care Team Providers Care Bag Hanger Name Role Phone Kaylee Mcgovern MD Unavailable [phone] SOCIAL HISTORY Sex Assigned At : Social History Observation Description Sex Assigned At Female Encounters Encounter Location Date Provider Diagnosis [facility] [address] [place] [address] [place] [phone] 12/23/2023 Kaylee Mcgovern MD PLAN OF TREATMENT No Information Progress Notes * Tiffany SONI PDOB:0 2000 (23 yo F)Acc No.[id number]:12/23/2023 Patient:??Hitesh SONI Provider:??Kaylee Mcgovern MD :2000?Age:23 Y?Sex:Fe male Date:12/23/2023 Address:[address] [place] [address] [id number] Subjective: * Chief Complaints: * ? * Medical History:?? Objective: Assessment: Plan: * Treatment: * Billing Information: * Visit Code:?? * Procedure Codes:?? * Sign off status: Pending * Provider:??Kaylee Mcgovern MD Date:??2023
--- OUTSIDE RECORDS SUMMARY | 2024-06-12 02:26 | XMS_ITS | Clinical Summary ---
Author Organization [facility] Address [address] [place] [address] Care Team Providers Care Office Mail Clerk Name Role Phone Ashely Latham MD Unavailable [phone] Trudy Carrillo MD Unavailable [phone] Medications carBAMazepine (TEGretol) 200 mg tablet 2 tablet(s) by mouth twice a day 60 tablet 0 01/04/2021 Active valproic acid (DEPAKENE) 250 mg capsule 2 capsule(s) by mouth twice a day 60 capsule 0 01/04/2021 Active Social History Tobacco Use Types Packs/Day Years Used Date Smoking Tobacco: Never Assessed Comments Unknown Sex and Gender Information Value Date Recorded Sex Assigned at Not on file Legal Sex Female 1:41 AM EST Gender Identity Unable to obtain 04/25/2023 1:41 AM EST Sexual Orientation Not on file Plan of Treatment Not on file Care Teams Office Mail Clerk Relationship Specialty Start Date End Date Ashely Latham MD [address] [place] [address] Internal Medicine 08/09/23 Trudy Carrillo MD [address] [place] [address] Internal Medicine 08/09/23
--- OUTSIDE RECORDS SUMMARY | 2024-06-12 02:26 | XMS_ITS | Encounter Summary ---
Author Organization [facility] r Address [address] [place] [address] Phone Care Team Providers Care Human Service Technician Name Role Phone Tj Guerrero Primary Care Provider Rochelle Neville MD Unavailable Reason for Visit * Reason Onset Date Comments Clinical Question 12/22/2023 Encounter Details Date Type Department Care Team (Late Contact Info) Description 12/22/2023 Telephone Pediatric Neurology [address] [facility] Floor [address] [place] [address] Kain Scott MD [address] [id number] Clinical Question Social History Tobacco Use Types Packs/Day Years Used Date Smoking Tobacco: Never Smokeless Tobacco: Never Alcohol Use Standard Drinks/Week Comments Never 0 (1 standard drink = 0.6 oz pur e alcohol) Housing Answer Date Recorded What is your living situation today? 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 Stable and will be discharged Was admitted from to [facility] for observation after having 2 seizures - one before arrivingto ED and one when trying to discharge her Seen inpatient Neurology in [place] and they increased her Keppra to 1500 am 2000 pm Recommendations: Please Fax note from inpatient [facility] No change in medications Will get FU with me Dr Scott * Telephone Encounter - Vivian Ortega - 12/22/2023 10:27 AM EDT Patient Reported Reason for Call Patient presents with Clinical Question Khushboo from [facility] ED requesting doctor Santamaria to contact doctor Luis Guy regarding patient- Wants to touch base - Patient admitted due to seizure. Paged doctor jessica Cuello's request to call [phone] documented in this encounter Plan of Treatment Upcoming Encounters Date Type Department Care Team (Late st Contact Info) Description 09/09/2024 1:40 PM EDT [facility] [address] [place] [address] Leoncio Andrews MD, MPH [address] [facility] [place] [address] documented as of this encounter Visit Diagnoses Not on filedocumented in this encounter Care Teams Human Service Technician Relationship Specialty Start Date End [place] [address] PCP - General Family Medicine 09/07/23 [place] [address] [place] [address] PCP - Insurance Family Medicine 09/08/23 documented as of this encounter
--- OUTSIDE RECORDS SUMMARY | 2024-06-12 02:26 | XMS_ITS | Clinical Summary ---
Author Organization [employer] Address [address] [facility] 7 [place] [address] Care Team Providers Care Study Coordinator Name Role Phone Rubina Judge NP Primary Care Provider [phone] Allergies No known active allergies Medications * This document contains information received from the source organization and may not represent a complete record from that organization. cephalexin (Keflex) 250 MG capsule Take 250 mg by mouth 4 times daily. 025 Active cholecalciferol (Vitamin D3) 25 MCG (1000 UT) tabletIndications: Vitamin D deficiency Take 1 tablet (1,000 Units) by mouth Once per day. 90 tablet 05/06/19 25 1:48 PM EST 025 Active Additional Information Patient not taking.Reported on 06/09/2024 QUEtiapine (SEROquel) 25 MG tabletIndications: Complex psychiatric condition Take 1 tablet (25 mg) by mouth 2 times daily. 60 tablet 1 06/02/19 25 10:50 AM EDT 025 Active Additional Information Patient not taking.Reported on 06/09/2024 zonisamide (Zonegran) 100 MG capsuleIndications :Epilepsy with partial complex seizures, with status epilepticus (CMS/HCC) Take 2 Capsules daily by mouth at bedtime 60 capsule 1 06/02/19 25 10:50 AM EDT 025 Active folic acid (Folvite) 1 MG tabletIndications: Epilepsy with partial complex seizures, with status epilepticus (CMS/HCC) Take 1 tablet (1 mg) by mouth Once per day. 90 tablet 1 05/07/19 25 11:22 AM EST Active lacosamide (Vimpat) 200 mg tablet tabletIndications: Epilepsy with partial complex seizures, with status epilepticus (CMS/HCC) Take 1 tablet (200 mg) by mouth 2 times daily. 60 tablet 1 05/07/19 11:22 AM EST Active divalproex (Depakote) 500 MG EC tabletIndications: Epilepsy with partial complex seizures, with status epilepticus (CMS/HCC) Take 1 tablet (500 mg) by mouth at bedtime. Do not crush, chew, or split. 30 tablet 05/07/19 11:22 AM EST Active Midazolam (Nayzilam) 5 MG/0.1ML solutionIndication s:Epilepsy with partial complex seizures, with status epilepticus (CMS/HCC) Administer 0.1 mL (5 mg) into affected nostril(s) if needed (for seizure lasting more than 5 min). May give second dose in other nostril if seizure lasting more than 10 min 2 each 1 05/07/19 11:22 AM EST Active cannabidiol (Epidiolex) 100 MG/ML solutionIndication s:Epilepsy with partial complex seizures, with status epilepticus (CMS/HCC) Take 0.5 mL (50 mg) by mouth 2 times daily. 100 mL 025 Active Additional Information Patient not taking.Reported on 06/09/2024 Diclofenac Sodium 1 % gel Apply 4 g topically 4 (four) times a day. Apply to neck and shoulders. 500 g 6 05/26/19 11:40 AM EDT Active Multiple Vitamin (Multi-Vitamin) tablet Take 1 tablet by mouth daily. 90 tablet 3 05/26/19 11:40 AM EDT 025 Active Additional Information Patient not taking.Reported on 06/09/2024 levETIRAcetam (Keppra) 1000 MG tabletIndications: Epilepsy with partial complex seizures, with status epilepticus (CMS/HCC) Take 2 tablets (2,000 mg) by mouth every 12 (twelve) hours. 120 tablet 1 06/04/19 4:51 PM EDT Active lidocaine (Lidoderm) 5 % patchIndications:A cute midline low back pain, unspecified whether sciatica present Apply 1 patch topically Once per day. Remove & discard patch within 12 hours or as directed by MD. 30 patch 1 06/10/19 1:43 PM EDT Active acetaminophen (Tylenol) 500 MG tabletIndications: Acute midline low back pain, unspecified whether sciatica present Take 1 tablet (500 mg) by mouth every 8 (eight) hours if needed for mild pain or moderate pain for up to 10 days. 30 tablet 06/10/19 1:43 PM EDT 025 2024 Active levETIRAcetam (Keppra) 1000 MG tabletIndications: Epilepsy with partial complex seizures, with status epilepticus (CMS/HCC) Take 2 tablets (2,000 mg) by mouth 2 times daily. 120 tablet 05/05/19 4:59 PM EST 025 2024 Discontinued(R eorder (will not trigger notification to Pharmacy)) acetaminophen (Tylenol) 500 MG tabletIndications: Acute costochondritis Take 1 tablet (500 mg) by mouth every 8 (eight) hours if needed for mild pain or moderate pain for up to 10 days. 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 Date Type Department Care Team Description 06/09/2024 12:00 PM EDT Office Visit [facility] [address] [place] [phone] Rubina Judge NP Acute midline low back pain, unspecified whether sciatica present (Primary Dx); Acute costochondritis; Epilepsy with partial complex seizures, with status epilepticus (CMS/HCC); Family conflict; Noncompliance with medication regimen 06/09/2024 Population Health Risk Score [facility] () [address] [address] Provider, Population Health Generic 06/03/2024 2:40 PM EDT Office Visit [facility] [address] [place] [address] Rubina Judge NP Acute costochondritis (Primary Dx); Adjustment disorder with mixed anxiety and depressed mood; Family conflict; Epilepsy with partial complex seizures, with status epilepticus (CMS/HCC) 06/01/2024 8:30 AM EDT Office Visit [facility] [address] [place] [phone] Josefa Brown MD Epilepsy with partial complex seizures, with status epilepticus (CMS/HCC) (Primary Dx); Tuberous sclerosis (CMS/HCC); Anxiety and depression 06/01/2024 Orders Only [facility] [address] [place] [phone] Josefa Brown MD Epilepsy with partial complex seizures, with status epilepticus (CMS/HCC) 06/01/2024 Orders Only [facility] [address] [place] [phone] Rubina Judge NP Epilepsy with partial complex seizures, with status epilepticus (CMS/HCC) 06/01/2024 Refill [facility] [address] [place] [phone] Rubina Judge NP Epilepsy with partial complex seizures, with status epilepticus (CMS/HCC) 05/25/2024 2:00 PM EDT Office Visit [facility] [address] [place] [phone] Josefa Brown MD Epilepsy with partial complex seizures, with status epilepticus (CMS/HCC) (Primary Dx); Tuberous sclerosis (CMS/HCC); Anxiety and depression 05/21/2024 10:00 AM EDT Office Visit [facility] [address] [place] [phone] Rubina Judge NP Immunization due (Primary Dx); Kidney function test abnormal; Housing insecurity; Family conflict; Epilepsy with partial complex seizures, with status epilepticus (CMS/HCC) 05/07/2024 9:30 AM EST Consult [facility] [address] [place] [phone] Josefa Brown MD Epilepsy with partial complex seizures, with status epilepticus (CMS/HCC) (Primary Dx); Tuberous sclerosis (CMS/HCC); Complex psychiatric condition 05/05/2024 1:20 PM EST Office Visit [facility] [address] [place] [phone] Rubina Judge NP Encounter for medical examination to establish care (Primary Dx); Epilepsy with partial complex seizures, with status epilepticus (CMS/HCC); Screening for viral disease; Encounter for screening for metabolic disorder; Screening for cervical cancer; Routine screening for STI (sexually transmitted infection); Complex psychiatric condition; Vitamin D deficiency from Last 3 Months Immunizations Name Administration Dates Next Due HPV 9-Valent 05/21/2024 Pfizer Covid-19 Vaccine 12+ 05/21/2024 Family History Medical History Relation Name Comments Hypertension Father Hypertension Mother Relation Name Status Comments Father Mother Social History Tobacco Use Types Packs/Day Years Used Date Smoking Tobacco: Never Passive Smoke Exposure: Never Smokeless Tobacco: Never Tobacco Cessation:Counseling Given: Not Answered Alcohol Use Standard Drinks/Week Comments Never 0 [...] Orientation Straight 05/05/2024 12 :48 PM EST Last Filed Vital Signs Vital Sign Reading Time Taken Comments Blood Pressure 97/57 06/09/2024 12:07 PM EDT Pulse 79 06/09/2024 12:07 PM EDT Temperature 36.6 ??C (97.8 ??F) 06/09/2024 12:07 PM E DT Respiratory Rate 12 06/03/2024 2:08 PM EDT Oxygen Saturation 97% 06/09/2024 12:07 PM EDT Inhaled Oxygen Concentration - - Weight 50 kg (110 lb 3.2 oz) 06/09/2024 12:07 PM EDT Height 157.5 cm (5' 2 ) 06/09/2024 12:07 PM EDT Body Mass Index 20.16 06/09/2024 12:07 PM EDT Plan of Treatment Upcoming Encounters Date Type Department Care Team (Late st Contact Info) Description 06/23/2024 12:40 PM EDT Office Visit [facility] [address] [place] [address] Rubina Judge NP [address] [place] [address] 07/01/2024 1:00 PM EDT Office Visit [facility] [address] [place] [address] Josefa Brown MD [address] [place] [address] Health Maintenance Due Date Last Done Comments Chlamydia and Gonorrhea Screening 2000 SDOH Screening 2000 Family Planning (PISQ) 10/27/2015 Pap Smear 2021 HPV Vaccines (3 - 3-dose series) 08/13/2024 05/21/2024, 03/17/2023 Depression Monitoring (PHQ-9) 12/03/2024 06/02/2024, 06/02/2024 Depression Screening 06/02/2025 06/02/2024, 06/03/19 25 Alcohol/Substance Use Screening 06/09/2025 06/09/2024 Tobacco Screening 06/09/2025 06/09/2024 DTaP/Tdap/Td Vaccines (2 - Td or Tdap) 03/17/2033 03/17/2023 Zoster Vaccines (1 of 2) 2050 RSV Patients and Patients Aged 60 years or older (1 - 1-dose 75+ series) 10/27/2075 Influenza Vaccine Completed 12/23/2023, , 01/17/2021 Hepatitis B Vaccines Completed 02/18/2024, 01/05/20 HIV Screening Completed 05/05/2024, 03/10, 01/07/2021 Hepatitis C Screening Completed 05/05/2024 COVID-19 Vaccine Completed 05/21/2024, 10/2023, 03/23/2021, Additional history exists HIB Vaccines Aged Out No longer eligi ble based on patient's age to complete this topic Hepatitis A Vaccines Aged Out No long er eligible based on patient's age to complete this topic IPV Vaccines Aged Out No longer eligi ble based on patient's age to complete this topic Meningococcal Vaccine Aged Out No michelle jayne eligible based on patient's age to complete this topic Pneumococcal Vaccine: Pediatrics (0 to 5 Years) and At-Risk Patients (6 to 49) Years) Aged Out No longer eligible based on patient's age to complete this topic RSV under 20 months Aged Out No longe r eligible based on patient's age to complete this topic Rotavirus Vaccines Aged Out No longer eligible based on patient's age to complete this topic Procedures Procedure Name Priority Date/Time Associated Diagnosis Comments ECG 12-LEAD Routine 06/03/2024 3:40 PM EDT Acute costochondritis ZONISAMIDE LEVEL Routine 06/01/2024 9:50 AM EDT VALPROIC ACID LEVEL, FREE Routine 06/01/2024 9:50 AM EDT Epilepsy with partial complex seizures, with status epilepticus (CMS/HCC) Tuberous sclerosis (CMS/HCC) VALPROIC ACID Routine 06/01/2024 9:50 AM EDT Epilepsy with partial complex seizures, with status epilepticus (CMS/HCC) Tuberous sclerosis (CMS/HCC) LEVETIRACETAM Routine 06/01/2024 9:50 AM EDT Epilepsy with partial complex seizures, with status epilepticus (CMS/HCC) Tuberous sclerosis (CMS/HCC) POCT , URINE Routine 05/21/2024 11:45 AM EDT Immunization due HEPATITIS C AB W/REFL TO HCV RNA, QN, PCR Routine 05/05/2024 3:31 PM EST Screening for viral disease HEPATITIS B SURFACE ANTIGEN W/REFL CONFIRM Routine 05/05/2024 3:31 PM EST Screening for viral disease HEPATITIS B SURFACE AB IMMUNITY, QN Routine 05/05/2024 3:31 PM EST Screening for viral disease HEPATITIS B CORE AB TOTAL Routine 05/05/2024 3:31 PM EST Screening for viral disease SYPHILIS ANTIBODY CASCADING REFLEX Routine 05/05/2024 3:31 PM EST Routine screening for STI (sexually transmitted infection) CBC WITH AUTO DIFFERENTIAL Routine 05/05/2024 3:31 PM EST Encounter for screening for metabolic disorder LIPID PANEL, STANDARD Routine 05/05/2024 3:31 PM EST Encounter for screening for metabolic disorder COMPREHENSIVE METABOLIC PANEL Routine 05/05/2024 3:31 PM EST Encounter for screening for metabolic disorder HIV 1/2 ANTIGEN/ANTIBODY, FOURTH GENERATION W/RFL Routine 05/05/2024 3:31 PM EST Screening for viral disease POCT URINALYSIS DIPSTICK Routine 05/05/2024 2:28 PM EST Routine screening for STI (sexually transmitted infection) CHLAMYDIA/N. GONORRHOEAE RNA, TMA, UROGENITAL Routine 05/05/2024 12:00 AM EST Routine screening for STI (sexually transmitted infection) from Last 3 Months Results * ECG 12 lead (06/03/2024 3:40 PM EDT) us Rubina Judge [employer] ECG ORDERABLES Final Result * Zonisamide, Serum or Plasma (06/01/2024 9:50 AM EDT) Zonisamide 10.2 10.0 - 40.0 mcg/mL [facility] Comment: (Note) This test was developed and its analytical performance characteristics have been determined by [facility]. It has not been cleared or approved by the FDA. This assay has been validated pursuant to the CLIA regulations and is used for clinical purposes. MD [facility] [address] [address],[address] [place] [id number] Adolph Mcintyre MD, PhD 06/01/2024 9:50 AM EDT 06/02/2024 2:38 PM EDT Narrative [facility] - 06/11/2024 12:54 PM EDT FASTING:UNKNOWN FASTING: UNKNOWN Result [facility] Josefa Brown MD LAB BLOOD ORDERABLES Final Resul t [facility] [address], [place] [address] [facility] [address] [address], [address] [place] [phone] * Levetiracetam (06/01/2024 9:50 AM EDT) Levetiracetam 29.2 mcg/mL [facility] Comment: ? Reference Range: 12.0-46.0 ? Toxic level is not well ? established. Interpretation ? should include a clinical ? evaluation. ? For additional information, please refer to http://education.AlpineReplay/faq/KDC522 (This link is being provided for informational/educational purposes only.) This test was developed and its analytical performance characteristics have been determined by [facility]. It has not been cleared or approved by the FDA. This assay has been validated pursuant to the CLIA regulations and is used for clinical purposes. Blood Venous blood specimen / Unknown 06/01/2024 9:50 AM EDT 06/02/2024 2:38 PM EDT Narrative [facility] - 06/11/2024 12:54 PM EDT FASTING:UNKNOWN FASTING: UNKNOWN Josefa Brown MD LAB BLOOD ORDERABLES Final Resul t Performing Organization Address [facility] de Phone Number [facility] [address] [place] [address], [place] [address] [facility] [place] [address] * (ABNORMAL) Valproic Acid, Free (06/01/2024 9:50 AM EDT) Valproic Acid, Free 2.0(L) 4.8 - 17.3 mg/L [facility] [place] [facility] Comment: Nonlinear drug binding properties result in the fraction of free valproic acid increasing as total drug increases. The free valproic acid fraction may range from 5% to 25% for the total drug range of 30-160 mg/L. Blood Venous blood specimen / Unknown 06/01/2024 9:50 AM EDT 06/02/2024 2:38 PM EDT Narrative [facility] - 06/11/2024 12:54 PM EDT FASTING:UNKNOWN FASTING: UNKNOWN Josefa Brown MD LAB BLOOD ORDERABLES Final Resul t Performing Organization Address [facility] de Phone Number [address], [place] [address] [facility] [place] [facility] [address] [place] [address] * (ABNORMAL) Valproic Acid Total (06/01/2024 9:50 AM EDT) Valproic Acid 48.6(L) 50.0 - 100.0 mg/L [facility] [place] [facility] Blood Venous blood specimen / Unknown 06/01/2024 9:50 AM EDT 06/02/2024 2:38 PM EDT Narrative [facility] - 06/11/2024 12:54 PM EDT FASTING:UNKNOWN FASTING: UNKNOWN Josefa Brown MD LAB BLOOD ORDERABLES Final Resul t Performing Organization Address [facility] de Phone Number [facility] [address] [place] [address], [place] [address] [facility] [place] [facility] [address] [place] [phone] * POCT , urine manually resulted (05/21/2024 11:45 AM EDT) Pathologist [facility] Preg Test, Ur Negative Negative, Indeterminate, None Detected, Invalid, Specimen unsatisfactory for evaluation, Weakly Positive Urine 05/21/2024 11:4 5 AM EDT Rubina Judge NP POINT OF CARE TEST ENTER/EDIT ORDERABLES Final Result * Syphilis Antibody Cascading Reflex (05/05/2024 3:31 PM EST) Pathologist [facility] T. pallidum Antibody NEGATIVE NEGATIVE [facility] [place] [facility] Comment: No antibodies to T. pallidum (the agent causing syphilis) were detected in the specimen. This result, however, does not exclude very recent T. pallidum infection; testing of a second specimen, collected 2-4 weeks after this specimen, is recommended if the index of suspicion for recent infection is high. Blood 05/05/2024 3:31 PM EST 05/06/2024 2:28 AM EST Narrative [facility] - 05/06/2024 9:10 AM EST FASTING:UNKNOWN FASTING: UNKNOWN Rubina Judge NP LAB BLOOD ORDERABLES Final Res ult Performing Organization Address City/[facility]/ZIP Co de Phone Number [address], [place] [address] [facility] [place] [facility] [address] [place] [address] [place] [address] * Hepatitis B Surface Antibody Immunity, Quantitative (05/05/2024 3:31 PM EST) Pathologist [facility] Hepatitis B Surface Antibody Immunity, QN 205 > OR = 10 mIU/mL [facility] [place] [facility] Comment: PATIENT HAS IMMUNITY TO HEPATITIS B VIRUS. For additional information, please refer to http://education.JobFlash/faq/ZRG989 (This link is being provided for informational/ educational purposes only). Blood Venous blood specimen / Unknown 05/05/2024 3:31 PM EST 05/06/2024 2:28 AM EST Narrative [facility] - 05/06/2024 9:10 AM EST FASTING:UNKNOWN FASTING: UNKNOWN us Rubina Judge [employer] LAB BLOOD ORDERABLES Final Res ult [address], [place] [address] [facility] [place] [facility] [address] [place] [address] * CBC auto differential (05/05/2024 3:31 PM EST) [facility] White Blood Cell Count 5.2 3.8 - 10.8 Thousand/ uL [facility] [place] [facility] Red Blood Cell Count 4.26 3.80 - 5.10 Million/u L [facility] [place] [facility] Hemoglobin 13.9 11.7 - 15.5 g/dL [facility] [place] [facility] Hematocrit 41.7 35.0 - 45.0 % [facility] [place] [facility] MCV 97.9 80.0 - 100.0 fL [facility] [place] [facility] MCH 32.6 27.0 - 33.0 pg [facility] [place] [facility] MCHC 33.3 32.0 - 36.0 g/dL [facility] [place] [facility] Comment: For adults, a slight decrease in the calculated MCHC value (in the range of 30 to 32 g/dL) is most likely not clinically significant; however, it should be interpreted with caution in correlation with other red cell parameters and the patient's clinical condition. RDW 12.7 11.0 - 15.0 % [facility] [place] [facility] Platelet Count 312 140 - 400 Thousand/ uL [facility] [place] [facility] MPV 12.2 7.5 - 12.5 fL [facility] [place] [facility] Absolute Neutrophils 2,356 1,500 - 7,800 cells/uL [facility] [place] [facility] Absolute Lymphocytes 2,465 850 - 3,900 cells/uL [facility] [place] [facility] Absolute Monocytes 328 200 - 950 cells/uL [facility] [place] [facility] Absolute Eosinophils 42 15 - 500 cells/uL [facility] [place] [facility] Absolute Basophils 10 0 - 200 cells/uL [facility] [place] [facility] Neutrophils 45.3 % [facility] [place] [facility] Lymphocytes 47.4 % [facility] [place] [facility] Monocytes 6.3 % [facility] [employer] [place] [facility] Eosinophils 0.8 % [facility] Basophils 0.2 % [facility] [place] [facility] Blood Venous blood specimen / Unknown 05/05/2024 3:31 PM EST 05/06/2024 2:28 AM EST Narrative [facility] - 05/06/2024 9:10 AM EST FASTING:UNKNOWN FASTING: UNKNOWN Rubina Judge NP LAB BLOOD ORDERABLES Final Res ult [facility] [address], [place] [address] [facility] [place] [facility] [address] [place] [address] * Hepatitis C Antibody with Reflex to HCV, RNA, Quantitative, Real-Time PCR (05/05/2024 3:31 PM EST) Pathologist [facility] Hepatitis C Antibody NON-REACT RAE NON-REACT RAE [facility] [place] [facility] Comment: HCV antibody was non-reactive. There is no laboratory evidence of HCV infection. In most cases, no further action is required. However, if recent HCV exposure is suspected, a test for HCV RNA (test code 21803) is suggested. For additional information please refer to http://education.JobFlash/faq/LJK03h6 (This link is being provided for informational/ educational purposes only.) Blood Venous blood specimen / Unknown 05/05/2024 3:31 PM EST 05/06/2024 2:28 AM EST Narrative [facility] - 05/06/2024 9:10 AM EST FASTING:UNKNOWN FASTING: UNKNOWN Rubina Judge LAB BLOOD ORDERABLES Final Res ult Performing Organization Address [facility] de Phone Number [facility] [address] [place] [address], [place] [address] [facility] [place] [facility] [address] [place] [phone] * Hepatitis B Core Antibody, Total (05/05/2024 3:31 PM EST) Pathologist [facility] Hepatitis B Core Antibody Total NON-REACT RAE NON-REACT RAE [facility] [place] [facility] Comment: For additional information, please refer to http://Jack [employer] Block.JobFlash/faq/PBS320 (This link is being provided for informational/ educational purposes only.) Blood Venous blood specimen / Unknown 05/05/2024 3:31 PM EST 05/06/2024 2:28 AM EST Narrative [facility] - 05/06/2024 9:10 AM EST FASTING:UNKNOWN FASTING: UNKNOWN Rubina Judge [employer] LAB BLOOD ORDERABLES Final Res ult Performing Organization Address [facility] de Phone Number [address], [place] [address] [facility] [place] [facility] [address] [place] [phone] * HIV-1/2 Antigen and Antibodies, Fourth Generation, with Reflexes (05/05/2024 3:31 PM EST) Pathologist [facility] HIV Antigen/Antibody, 4th Generation NON-REAC TIVE NON-REAC TIVE [facility] [place] [facility] Comment: HIV-1 antigen and HIV-1/HIV-2 antibodies were not detected. There is no laboratory evidence of HIV infection. PLEASE NOTE: This information has been disclosed to you from records whose confidentiality may be protected by state law. ??If your state requires such protection, then the state law prohibits you from making any further disclosure of the information without the specific written consent of the person to whom it pertains, or as otherwise permitted by law. A general authorization for the release of medical or other information is NOT sufficient for this purpose. ?? For additional information please refer to http://Jack On Block.JobFlash/faq/AKK636 (This link is being provided for informational/ educational purposes only.) The performance of this assay has not been clinically validated in patients less than 2 years old. Blood Venous blood specimen / Unknown 05/05/2024 3:31 PM EST 05/06/2024 2:28 AM EST Narrative [facility] - 05/06/2024 9:10 AM EST FASTING:UNKNOWN FASTING: UNKNOWN Rubina Judge SAL[employer] LAB BLOOD ORDERABLES Final Res ult Performing Organization Address [facility] [facility] de Phone Number [employer] [address] [place] [phone] [facility] [place] [facility] [address] [place] [phone] * Hepatitis B Surface Antigen with Reflex Confirmation (05/05/2024 3:31 PM EST) Hepatitis B Surface Ag NON-REACT RAE NON-REACT RAE [facility] Comment: For additional information, please refer to http://Jack On Block.JobFlash/faq/FGH304 (This link is being provided for informational/ educational purposes only.) Blood Venous blood specimen / Unknown 05/05/2024 3:31 PM EST 05/06/2024 2:28 AM EST Narrative [facility] - 05/06/2024 9:10 AM EST FASTING:UNKNOWN FASTING: UNKNOWN Rubina Judge SALES MERCHANDISE ASSOCIATE LAB BLOOD ORDERABLES Final Res ult Performing Organization Address [facility] Co de Phone Number [address] [phone] [facility] [address] [place] [address] * Lipid Panel, Standard (05/05/2024 3:31 PM EST) [facility] Cholesterol, Total 156 <200 mg/dL [facility] [place] [facility] HDL Cholesterol 69 > OR = 50 mg/dL [facility] [place] [facility] Triglycerides 76 <150 mg/dL [facility] [place] [facility] LDL Cholesterol 71 mg/dL [facility] [place] [facility] Comment: Reference range: <100 Desirable range <100 mg/dL for primary prevention; ?? <70 mg/dL for patients with CHD or diabetic patients with > or = 2 CHD risk factors. LDL-C is now calculated using the Jackie calculation, which is a validated novel method providing better accuracy than the Friedewald equation in the estimation of LDL-C. Leonides SS et al. RONALD. 2013;310(19): 9099-4929 (http://education.AlpineReplay/faq/RIK696) Chol/HDLC Ratio 2.3 <5.0 (calc) [facility] [place] [facility] Non-HDL Cholesterol 87 <130 mg/dL [facility] [place] [facility] Comment: For patients with diabetes plus 1 major ASCVD risk factor, treating to a non-HDL-C goal of <100 mg/dL (LDL-C of <70 mg/dL) is considered a therapeutic option. Blood Venous blood specimen / Unknown 05/05/2024 3:31 PM EST 05/06/2024 2:28 AM EST Narrative [facility] - 05/06/2024 9:10 AM EST FASTING:UNKNOWN FASTING: UNKNOWN us Rubina Judge NP LAB BLOOD ORDERABLES Final Res ult [facility] [address], [place] [address] [facility] [address] [place] [address] * (ABNORMAL) Comprehensive Metabolic Panel (05/05/2024 3:31 PM EST) Glucose 85 65 - 99 mg/dL [facility] Comment: ? Fasting reference interval Urea Nitrogen (BUN) 16 7 - 25 mg/dL [facility] Creatinine, Serum 0.47(L) 0.50 - 0.96 mg/dL [facility] eGFR 137 > OR = 60 mL/min/1. 73m2 [facility] BUN/Creatinine Ratio 34(H) 6 - 22 (calc) [facility] Sodium 137 135 - 146 mmol/L [facility] Potassium 4.5 3.5 - 5.3 mmol/L [facility] Chloride 99 98 - 110 mmol/L [facility] Carbon Dioxide 26 20 - 32 mmol/L [facility] Calcium 9.8 8.6 - 10.2 mg/dL [facility] Protein, Total 8.1 6.1 - 8.1 g/dL [facility] Albumin 5.0 3.6 - 5.1 g/dL [facility] Globulin 3.1 1.9 - 3.7 g/dL (calc) [facility] Albumin/Globuli n Ratio 1.6 1.0 - 2.5 (calc) [facility] [place] [facility] Bilirubin, Total 0.2 0.2 - 1.2 mg/dL [facility] Alkaline Phosphatase 39 31 - 125 U/L [facility] [place] [facility] AST 11 10 - 30 U/L [facility] ALT 13 6 - 29 U/L [facility] [place] [facility] Blood Venous blood specimen / Unknown 05/05/2024 3:31 PM EST 05/06/2024 2:28 AM EST Narrative [facility] - 05/06/2024 9:10 AM EST FASTING:UNKNOWN FASTING: UNKNOWN us Rubina Judge SALES MERCH[employer]ISE ASSOCIATE LAB BLOOD ORDERABLES Final Res ult [facility] [address], [place] [address] [facility] [place] [facility] [address] [place] [address] * POCT urinalysis dipstick manually resulted (05/05/2024 2:28 PM EST) Color, UA Colorless Clarity, UA Cloudy Glucose, UA Negative Bilirubin, UA Negative Ketones, UA Negative Spec Grav, UA 1.030 Blood, UA Negative Negative, None Detected pH, UA 6.0 Protein, UA Negative Urobilinogen, UA 1.0 Leukocytes, UA Negative Negative, Rare, Trace Nitrite, UA Negative Negative, None Detected Urine 05/05/2024 2:28 PM EST Rubina Judge NP POINT OF CARE TEST ENTER/EDIT ORDERABLES Final Result * Chlamydia/N. Gonorrhoeae RNA, TMA, Urogenitial (05/05/2024 12:00 AM EST) Chlamydia trachomatis RNA, TMA, Urogenital TNP [facility] [place] [facility] Comment: TEST NOT PERFORMED ?? Urine specimen tube was overfilled. Urine level must be within the designated fill markings on the transport tube. Urine (Urine, Random) 05/05/2024 05/06/2024 5:25 AM EST Rubina Judge NP LAB MICROBIOLOGY - GENERAL ORD ERABLES Final Result [facility] [address], [place] [address] [facility] [place] [facility] [address] [place] [address] from Last [address] [place] [address] [address] [facility] Care Teams Study Coordinator Relationship Specialty Start Date End Date Rubina Judge NP [address] [place] [id number] PCP - General Nurse Practitioner 04/21/24
--- OUTSIDE RECORDS SUMMARY | 2024-06-12 02:26 | XMS_ITS | Encounter Summary ---
Author Organization [facility] r Address [address] [place] [address] Phone Care Team Providers Care Special Events Fundraiser Name Role Phone CelsoTj lozoya Primary Care Provider Rochelle Neville MD Unavailable Encounter Details Date Type Department Care Team (Late st Contact Info) Description 06/11/2024 Telephone Neurology [address] [place] [address] [place] [address] Social History Tobacco Use Types Packs/Day Years Used Date Smoking Tobacco: Never Smokeless Tobacco: Never Alcohol Use Standard Drinks/Week Comments Never 0 (1 standard drink = 0.6 oz pur e alcohol) Housing Answer Date Recorded What is your living situation today? I have a [facility] to live 02/18/2024 Medications Answer Date Recorded Do you have trouble paying for prescriptions? No 02/18/2024 Utilities Answer Date Recorded Do you have trouble paying f or utilites (heat, electricity, internet, or phone bill)? No 02/18/2024 Caregiving [place] Answer Date Recorded Taking care of a child, elder, or disabled margarita n No 02/18/2024 Employment Answer Date Recorded [...] or phone to manage your health (use [employer], see medical records, make appointments, get refills, message care team) No 02/18/2024 Sex and Gender Information Value Date Recorded Sex Assigned at Female 07/18/2022 1:14 PM EDT Gender Identity Female 10/08/2022 11:00 AM EDT Sexual Orientation Patient chooses not to answer 04/30/2023 3:04 PM EST documented as of this encounter Miscellaneous Notes * Telephone Encounter - Omer Gracia MD - 06/11/2024 5:36 PM EDT Telephone note Spoke with emergency room provider at [facility] by phone. Patient presented to the emergency room for separate presentation and is stable without seizures. The patient reported that she had not refilled her epilepsy medications and stopped taking them all in April 2024. The patient was interested in restarting all of her medications. I reviewed the medication list. The ED there will fill her medications, which include: Zonisamide 100 mg nightly Lacosamide 200 mg twice daily Levetiracetam 750 mg every morning, 1500 mg nightly Valproic acid 500 mg nightly, for psychiatric indication I told the outside emergency room provider that I would reach out to our clinic to schedule follow-up. Omer Gracia MD documented in this encounter Plan of Treatment Upcoming Encounters Date Type Department Care Team (Late st Contact Info) Description 09/09/2024 1:40 PM EDT Office Visit Cardiology [address] [place] [phone] Leoncio Andrews MD, MPH [address] [facility], 3rd [place] [address] documented as of this encounter Visit Diagnoses Not on filedocumented in this encounter Care Teams Special Events Fundraiser Relationship Specialty Start Date End Date [place] [address] PCP - General Family Medicine 09/07/23 [place] [address] PCP - Insurance Family Medicine 09/08/23 documented as of this encounter
--- OUTSIDE RECORDS SUMMARY | 2024-06-12 02:26 | XMS_ITS | Encounter Summary ---
Author Organization [facility] r Address [address] [place] [address] Phone Care Team Providers Care Project Internship Name Role Phone Yin Keen MD, MPH Unavailable [phone] Pcp-Confirmed, No Primary Care Provider Unavaila Tj Villagran DO Primary Care Provider [phone] Rochelle Neville MD Unavailable Reason for Visit * Reason Onset Date Comments Medication Refill 07/23/2022 Encounter Details Date Type Department Care Team (Late st Contact Info) Description 07/23/2022 Refill [facility] [address] [place] [address] Erin Hill, marketing [place] [address] Social History Tobacco Use Types Packs/Day Years Used Date Smoking Tobacco: Unknown Housing Answer Date Recorded What is your living situation today? I have a [facility] place to live 12/25/2021 Sex and Gender Information Value Date Recorded Sex Assigned at Female 07/18/2022 1:14 PM EDT Gender Identity Female 10/08/2022 11:00 AM EDT Sexual Orientation Patient chooses not to answer 04/30/2023 3:04 PM EST documented as of this encounter Miscellaneous Notes * Telephone Encounter - Erin Hill CPhT - 07/23/2022 1:35 PM EDT Veronica, This patient is enrolled in Specialty Care Management. If appropriate, can you please send refills to [facility]? Thank You, Erin Hill documented in this encounter Plan of Treatment Upcoming Encounters Date Type Department Care Team (Late st Contact Info) Description 09/09/2024 1:40 PM EDT Office Visit Cardiology [address] [place], [place] [address] [address] [place] [phone] Leoncio Andrews MD, MPH [address] [facility], 3rd [place] [phone] documented as of this encounter Visit Diagnoses Not on filedocumented in this encounter Care Teams Project Internship Relationship Specialty Start Date End Date Yin Keen MD, MPH [address] [facility] [place] [address] [place] [phone] PCP - Insurance 01/10/22 09/07/23 Pcp-Confirmed, No PCP - General 02/07/23 09/06/23 [place] [address] PCP - General Family Medicine 09/07/23 [place] [address] PCP - Insurance Family Medicine 09/08/23 documented as of this encounter
--- OUTSIDE RECORDS SUMMARY | 2024-06-12 02:26 | XMS_ITS | Encounter Summary ---
Author Organization [facility] r Address [address] [place] [address] Phone Care Team Providers Care Actuarial Science Professor Name Role Phone Yin Keen MD, MPH Unavailable [phone] Pcp-Confirmed, No Primary Care Provider Unavaila ble Tj Guerrero DO Primary Care Provider Rochelle Neville MD Unavailable Reason for Visit * Reason Onset Date Comments Forms 08/20/2023 Encounter Details Date Type Department Care Team (Late st Contact Info) Description 08/20/2023 Telephone Family Medicine [address] [place] [address] [place] [address] Forms Social History Tobacco Use Types Packs/Day Years Used Date Smoking Tobacco: Never Smokeless Tobacco: Never Alcohol Use Standard Drinks/Week Comments Never 0 (1 standard drink = 0.6 oz pur e alcohol) Housing Answer Date Recorded What is your living situation today? I have a [facility] place to live 02/13/2023 Sex and Gender Information Value Date Recorded Sex Assigned at Female 07/18/2022 1:14 PM EDT Gender Identity Female 10/08/2022 11:00 AM EDT Sexual Orientation Patient chooses not to answer 04/30/2023 3:04 PM EST documented as of this encounter Miscellaneous Notes * Telephone Encounter - Nelly Brandt - 09/15/2023 12:17 PM EDT Form was completed and faxed on 09/14 to [facility]. * Telephone Encounter - Argentina Guzmán - 09/15/2023 10:03 AM EDT Patient Reported Reason for Call Patient presents with Forms Fact Finding Questions Type of form requested: Other If Other, specify: Plan of Care and Face to Face Visit Form When was form received: 06/26/23 How was form received: by fax Preferred method for return: fax [facility] care management calling on behalf of pt. [facility] has not received the form needed Please fax to - [facility] * Telephone Encounter - Nelly Brandt - 08/22/2023 12:12 PM EDT Form was completed and faxed on 08/21 to [facility]. * Telephone Encounter - Maulik Anaya - 08/21/2023 5:08 PM EDT SOFIYA called stating she has not received the orders from the clinic and have not received a phone to call about this , caller stated that this are not current order, wondering if the patient need to be seen for that , please call back [phone] * Telephone Encounter - Bright Herzog - 08/20/2023 11:48 AM EDT Patient Reported Reason for Call Patient presents with Forms Fact Finding Questions Type of form requested: Other If Other, specify: Plan of Care and Face to Face Visit Form When was form received: 06/27/23 How was form received: by fax Preferred method for return: fax Stephanie from [facility] can be reached [phone], FAX: [phone]. Stephanie called in regards to a plan of Care form that was faxed over on 06/26/23. Stephanie received a call from the nurse stating that the patient has to schedule an appt. Stephanie called to clarify that the form request is not for any recent appts. This request was created in may. ADV 14 business TAT documented in this encounter Plan of Treatment Upcoming Encounters Date Type Department Care Team (Late st Contact Info) Description 09/09/2024 1:40 PM EDT Office Visit Cardiology [address] [place] [address] [address] [place] [phone] Leoncio Andrews MD, MPH [address] [facility], 3rd [place] [phone] documented as of this encounter Visit Diagnoses Not on filedocumented in this encounter Care Teams Actuarial Science Professor Relationship Specialty Start Date End Date Yin Keen MD, MPH [address] [facility] [place] [address] [place] [phone] PCP - Insurance 01/10/22 09/07/23 Pcp-Confirmed, No PCP - General 02/07/23 09/06/23 Tj Guerrero DO [facility] [place] [address] PCP - General Family Medicine 09/07/23 [place] [address] PCP - Insurance Family Medicine 09/08/23 documented as of this encounter
--- OUTSIDE RECORDS SUMMARY | 2024-06-12 02:26 | XMS_ITS | Referral Summary ---
Author Organization [facility] Address [address] [place] [address] Phone Care Team Providers Care Windlace Machine Operator Name Role Phone Yolanda Jim LITTLEJOHN Primary Care Provider [phone] Elisabeth Helms MD Unavailable Encounters Date Type Department Care Team Description 06/11/2024 Telephone Neurology [address] [place] [address] Omer Gracia MD 06/02/2024 Telephone [facility] [address] [phone] Chuckie Ibarra 06/02/2024 Patient Outreach [facility] [address] [facility] [address] [place] [address] Precious Carrasco RN 05/20/2024 Patient Outreach [address] [phone] Arturo Simons 05/17/2024 Patient Outreach [address] [phone] Arturo Simons 05/12/2024 Refill General Internal Medicine - [place] [address] [place] [address] [address] [place] [address] Shree Delgado CPhT Health maintenance examination; Neck pain 05/12/2024 Telephone General Internal Medicine - [place] [address] [place] [address] [address] [place] [phone] Shree Delgado CPhT 04/28/2024 Patient Outreach [address] [phone] Arturo Simons 04/22/2024 Telephone Family [facility] [address] [facility] [place] [address] Jim Guerrero DO 04/21/2024 Telephone Family Medicine [address] [facility] [place] [address] Jim Guerrero DO 04/19/2024 11:56 AM EST - 04/19/2024 12:21 PM EST Emergency [facility] Emergency Department [address] [place] [address] Discharge Disposition: LWOBS 04/16/2024 Telephone Family Medicine [address] [place] [address] Pcp-Confirmed, No Letter Request 04/16/2024 Telephone Family Medicine [address] [facility] [place] [address] Pcp-Confirmed, No Forms 04/13/2024 Patient Outreach [address] [phone] Arturo Simons 04/12/2024 Telephone General Internal Medicine - [place] [address] [place] [address] [address] [place] [address] Shree Delgado CPhT 03/25/2024 Refill [facility] Call Center [address] [place] [address] Arya De Leon, correspondence renew clerk Tuberous sclerosis; Epilepsy with partial complex seizures, with status epilepticus 03/24/2024 Patient Outreach [facility] [address] [phone] Arturo Simons 03/24/2024 Telephone [facility] 801 [facility] [place] 1st [place] [phone] Chuckie Ibarra 03/24/2024 Refill Pediatric Neurology 801 [facility], Floor [address] [place] [phone] Chato Ji MD 03/18/2024 Patient Outreach [facility] [address] [phone] Precious Carrasco RN from Last 3 Months Allergies No known active allergies Medications Medication Sig Dispensed Refills Start Date End Date Status midazolam (NAYZILAM) 5 mg/spray (0.1 mL) Burnett 1 spray as a single dose in 1 nostril as needed for seizure; may repeat same dose in 10 minutes in alternate nostril 2 each 02/10/2023 Active folic acid, vitamin B9, (FOLVITE) 1 mg tablet Take 1 tablet (1 mg total) by mouth daily. 30 tablet 11 10/08/2023 10/07/2024 Active cholecalciferol (VITAMIN D3) 25 mcg (1000 unit) tablet Take 1 tablet (1,000 Units total) by mouth daily. 90 tablet 3 12/31/2023 Active divalproex (DEPAKOTE) [address] tabletIndications:U nspecified mood (affective) disorder Take 1 tablet (500 mg total) by mouth nightly. October refill 30 tablet 1 02/19/2024 Active QUEtiapine (SEROQUEL) 25 MG tabletIndications:U nspecified mood (affective) disorder Take 1 tablet (25 mg total) by mouth 2 (two) times a day. October refill 60 tablet 1 02/19/2024 Active levETIRAcetam (KEPPRA) 1000 MG tabletIndications:E pilepsy with partial complex seizures, with status epilepticus,Tuberou s sclerosis Take 2 tablets (2,000 mg total) by mouth 2 (two) times a day. 180 tablet 3 03/09/2024 Active cannabidiol extract (EPIDIOLEX) 100 mg/mL oral solution TAKE 0.5ML BY MOUTH TWICE A DAY FOR ONE WEEK, 1ML TWICE A DAY FOR 1 WEEK, 1.5ML TWICE A DAY FOR 1 WEEK, THEN 2ML TWICE A DAY 120 mL 03/24/2024 Active zonisamide 100 MG capsuleIndications: Tuberous sclerosis,Epilepsy with partial complex seizures, with status epilepticus Take 2 capsule (200 mg) by mouth at night 60 capsule 2 03/26/2024 Active lacosamide 200 mg TabIndications:Tube jamila sclerosis,Epilepsy with partial complex seizures, with status epilepticus Take 200 mg by mouth 2 (two) times a day. 60 tablet 2 03/26/2024 Active multivitamin (THERAGRAN) per tabletIndications:H ealth maintenance examination Take 1 tablet by mouth daily. 90 tablet 3 05/12/2024 Active diclofenac (VOLTAREN) 1% gelIndications:Neck pain Apply 4 g topically 4 (four) times a day. Apply to neck and shoulders. 500 g 6 05/12/2024 Active Active Problems Patient Care Coordination No te Formatting of this note migh t be different from the original. PLEASE DO NOT DELETE This patient is enrolled with the Medicaid ACO Complex Care Management team One-line summary: 23 year-old female, PMHx including complex psychiatric condition, Epilepsy with partial seizures, and TSC associated neuropsychiatric disorder. Ambulatory CCM team: Chuckie Ibarra LCSW, URIEL Lozano, Precious Carrasco [facility] RN [phone] If inpatient, please contact Ambulatory CCM team. Care team: PCP: Dr. Yin Dawn MD, MPH Specialists: Dr. Dee Scott MD (Neurology) Behavioral Health Providers: Dr. Andrea Miranda DO Long-Term Supports: Others: Housing/Home supports and services/DME: Housing situation: housed Family supports: Lives with mother and other family members. VNA: [facility] Katie - Carina HEAD RENAL CASE MANAGER: Current DME owned: Others: Pharmacy services: Clinical Pharmacy Support: [facility] Pharmacy Support as needed for Med access Known med adherence barriers: Lower health literacy and depression Med adherence packaging: No Medication delivery: Preferred pharmacies: [facility] Pharmacy at [facility]: ; Problem Noted Date Diagnosed Date Bilateral foot pain 02/18/2024 Assessment & Plan (02/18/2024 4:25 PM EST): Pt reporting intermittent sharp pain in her feet, b/l. No abnormalities on exam. Unclear etiology, but will make sure she has no DM. - Follow-up labs. Neck pain 02/18/2024 Housing insecurity 01/18/2024 Chest pain 12/23/2023 Assessment & Plan (12/23/2023 2:26 PM EDT): Pt is having chest pain that started today. She denies SOB, palpitations, nausea, pain with inspiration. She thinks she is anxious since she had an argument with her family this AM. EKG today with HR 58, normal sinus rhythm, no ST segment elevations or depressions. Symptoms may be from mood. - Continue to monitor. - Reasons to seek medical attention include worsening chest pain, radiation, SOB, palpitations. Breakthrough seizure 06/25/2023 Assessment & Plan (02/18/2024 4:21 PM EST): Pt followed by Dr Finnegan in [facility]rology for seizures. She reports compliance with taking Epidiolex, zonisamide 200 mg PO nightly, lacosamide 100 mg PO BID, and keppra 2,000 mg PO BID. She had a seizure two days ago, seen at an outside hospital. Unclear reason for seizure, although pt reporting diarrhea without systemic symptoms x3 days, so may be from acute illness. She denies missed doses; Epidiolex is also helping with visual hallucinations. - Pt to follow-up with Neuro as scheduled; continued prescribed meds. Assessment & Plan (01/27/2024 11:17 AM EST): Pt followed by Dr Finnegan in [facility] for seizures. She reports compliance with taking Epidiolex, zonisamide 200 mg PO nightly, lacosamide 100 mg PO BID, and keppra 2,000 mg PO BID. She has not had a seizure since she saw Dr Finnegan on 01/05/31. - Pt to follow-up with Neuro as scheduled; continued prescribed meds. Assessment & Plan (12/23/2023 2:35 PM EDT): Pt presenting after an ED visit to [place] for seizure yesterday. Per discharge summary, keppra 2,000 mg PO BID was added for her seizures. She is already on lacosamide 200 mg PO BID, divalproex 500 mg PO bedtime, zonisamide 200 mg PO bedtime, folic acid daily. Per [facility], pt has not seen Neurology at [facility] since 06/09/23, despite multiple visits to [place] for breakthrough seizures. - Will message pt's Neurologist for follow-up, since med rec was very confusing today. She also does not have a follow-up appt in her chart. - Will also message pt's correctional casework specialist to assist with scheduling and PT1. Lung nodule 03/17/2023 Overview (03/17/2023): CTPA from 02/2023 showing few clustered centrilobular nodules in the left lower lobe suggestive of infectious/inflammatory process, follow-up to resolution encouraged. No focal consolidation. Ordered CT chest to assess for resolution. - F/u CT chest. 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 Pt with nexplanon since age 20. She reports recent sexual activity; urine hcg negative today. Pt yet to obtain A1c and lipid panel that was ordered for care gaps. She received Hep B #2 and MMR #2 today. - Pt to go to lab. - Follow-up in 1-2 months for continued health maintenance. [ ] Pt needs pap smear. 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 Pt with nexplanon since age 20. Ordering A1c and lipid panel per care gaps today, since ordered repeat TSH for hair loss. - Follow-up labs. - Follow-up in 1-2 months for continued health maintenance. [ ] Pt to schedule pap smear. 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 She was 40 minutes late for her appointment, and as a result, the visit was brief. Pt with nexplanon since age 20. Pt non-immune for measles and Hep B; however, only given flu vaccine today. - Pt can take Tylenol if she develops arm pain, myalgias, fever from flu vaccine. - Pt initially wanted to change her VNA to [facility]; however, now she is amenable to [facility]. - Follow-up in 2-4 weeks for continued health maintenance. [ ] Pt to schedule pap smear since unable to perform today as pt was late again. Hair loss 03/17/2023 Assessment & Plan (01/27/2024 11:20 AM EST): Patient reporting hair loss along scalp. Patient keeps her hair pulled back tightly. Last CBC without anemia and TSH within normal limits one year ago. Discussed concerns for traction alopecia in past visits; no signs of annular rash on exam to suggest tinea capitis. - Repeat TSH, although less likely cause. - Continue MVI. Assessment & Plan (03/18/2023 8:42 AM EST): Patient reporting hair loss along scalp. Patient keeps her hair pulled back tightly. Last CBC without anemia and TSH within normal limits. 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 Discussed loosening hair to prevent worsening. -Revisit at next visit. Non compliance w medication regimen 10/27/2022 Complex psychiatric condition 10/27/2022 Assessment & Plan (01/27/2024 11:18 AM EST): Pt on quetiapine 25 mg BID and depakote 500 mg at bedtime, prescribed by Psych. Per pt, she has not received refill in the mail. - Will message Pharmacy to see if they can look into whether these have been mailed, as well as her MVI. Epilepsy with partial comple x seizures, with status epilepticus 03/13/2021 TSC associated neuropsychiatric disorder (TAND) 02/28/2021 Overview (12/03/2022): History of aggressive behaviors (mostly outbursts towards family) and history of self injuries behaviors (cutting her wrists and thoughts) and intrusive thoughts. Recent hospitalization in [place] for agitated behaviors in october 2021.No history of suicide attempts. No hx of prior psychiatric diagnosis. Unclear trauma history. Low health literacy level. Medication non-adherence with seizure medications and recently seen for breakthrough seizure and on Lacosamide and Keppra. History of prior trial of Depakote but only 1 day at and discontinued due to nausea/vomiting per chart. On Seroquel bid prn for anxiety and sleep but no other prior psychiatric medication trial. Symptoms most consistent with TSC associated neuropsychiatric disorder (TAND). However differential still includes primary depressive disorder vs possible trauma related disorder (although no specific trauma endorsed). Assessment & Plan (08/14/2023 3:50 PM EDT): - Continue Depakote 500 mg qhs - Continue Seroquel 25 mg BID - Continue individual therapy Assessment & Plan (05/30/2023 5:58 PM EDT): Continue Seroquel 25 mg Bid and Depakote 500 mg qhs Continue monthly therapy Assessment & Plan (05/03/2023 3:15 PM EST): - Continue Seroquel 25 mg BID for anxiety - Continue Depakote 500 mg qhs for mood stabilization /agitation/sleep, additionally can further help some with seizure control - Appreciate involvement of CCM for assessment and need of additional supports - Continue monthly short term individual therapy for support Assessment & Plan (02/13/2023 5:31 PM EST): - Discontinue Seroquel 100 mg qhs for sleep but continue Seroquel 25 mg for anxiety - Start Depakote 500 mg qhs for mood stabilization /agitation/sleep , additionally can further help some with seizure control - Appreciate involvement of CCM for assessment and need of additional supports (ie need for VNA services, ? DDS application etc) - Continue monthly short term individual therapy for support ?? Assessment & Plan (01/09/2023 3:57 PM EDT): - Continue Seroquel 25 mg BID and 100 mg qhs for sleep - Appreciate involvement of CCM for assessment and need of additional supports (ie need for VNA?) - Continue monthly short term individual therapy for support Assessment & Plan (12/03/2022 5:29 PM EDT): Continue Seroquel 25 mg BID and 100 mg qhs Continue follow up with CCM Collaborate with Neurology Reinforce information regarding [employer] in [place] Assessment & Plan (11/24/2022 1:26 PM EDT): - Continue seroquel 25 mg Bid and 100 qhs - Place resource work referral for food pantry - Follow up with CCM and is eligible - Provide information regarding [employer] in [place] for community support - Encourage providers to call patient directly given appears to be more receptive and able to make appointments ([phone]) Assessment & Plan (11/24/2022 12:58 PM EDT): - Continue Seroquel 25 mg BID (encourage afternoon dose for helping with irritability) And 100 mg qhs Assessment & Plan (06/18/2022 5:24 PM EDT): - Change Seroquel to 100 mg qhs for sleep and 25 mg in am and 25 mg in the afternoon for agitation/anxiety standing. 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 - Constellation of findings including: brain MRI w/ linear hyperintensities, one Sarath Odenton on R arm, possible Shagreen patch on the back and numerous central facial papules c/w angiofibromas and echo findings with multiple regressed hamartomas Assessment & Plan (12/23/2023 12:30 PM EDT): Will order repeat MRI abdomen per prior discharge summary request, since renal evaluation not yet obtained. Assessment & Plan (02/07/2021 6:22 PM EST): - Ms. Alejandra presented to the clinic today for fundus photos - On fundus exam on 01/12/21, she was negative for any definitive signs of tuberous sclerosis; I observed one non-specific finding, which was a very small, pinpoint, hypopigmented lesion superior to a superior arcade vessel in the right eye. - Today's fundus photos were of good quality; she is negative for definitive retinal astrocytic hamartoma; in the photos, it is possible to see the small pinpoint hypopigmented lesion superior to her superotemporal arcade vessels (right eye) - It is possible that this lesion could represent a very small atypical astrocytic hamartoma, but it is difficult to say - I would like to follow her yearly with fundus photos, to ensure that this small hypopigmented lesion does not develop features of astrocytic hamartoma over time Follow up in 1 year for fundus photos both eyes and DFE Refractive error 02/07/2021 Assessment & Plan (02/07/2021 6:15 PM EST): - MRx given today Diplopia 02/07/2021 Assessment & Plan (02/07/2021 6:15 PM EST): - During her inpatient stay, the patient reported longstanding diplopia since childhood - On today's alignment testing, she was orthophoric in all directions of gaze - It is possible that the patient was noting monocular diplopia; if so, this will be resolved by updated MRx given to her today Breakthrough seizure 01/06/2021 Immunizations Name Administration Dates Next Due Covid-19 Vaccine, (MODERNA R ED CAP_12+ PRIMARY SERIES), mRNA, intramuscular PF injection 03/23/2021,01/17/2021,01/17/2021 Covid-19 Vaccine, (MODERNA R ED CAP_18+ BOOSTER), mRNA, intramuscular PF injection 03/23/2021,01/17/2021 Covid-19 Vaccine, SPIKEVAX (MODERNA)_12+_0.5 mL, intramuscular PF injection 03/17/2023 HPV vaccine types 6,11,16,18 ,31,33,45,52,58 nonvalent 03/17/2023 Hepatitis B, Adjuvanted (Heplisav-b) 02/18/2024, 01/05/2024 Influenza Vaccine (AFLURIA T RIVALENT MDV) intramuscular injection (0.5 mL dose, 3 years and older) 12/23/2023 Influenza vaccine (FLULAVAL/ FLUZONE/FLUARIX TRIV) intramuscular PF syringe (>=6 months and older) 02/10/2023 MMR 02/18/2024,12/29/2023 TDAP 03/17/2023 influenza vaccine (FLUCELVAX QUAD) intramuscular PF syringe (6 months and older) 01/17/2021 Social History Tobacco Use Types Packs/Day Years Used Date Smoking Tobacco: Never Smokeless Tobacco: Never Tobacco Cessation:Counseling Given: Not Answered Alcohol Use Standard Drinks/Week Comments Never 0 (1 standard drink = 0.6 oz pur e alcohol) Housing Answer Date Recorded What is your living situation today? I have a [facility] place to live 02/18/2024 Medications Answer Date Recorded Do you have trouble paying for prescriptions? No 02/18/2024 Utilities Answer Date Recorded Do you have trouble paying f or utilites (heat, electricity, internet, or phone bill)? No 02/18/2024 Caregiving [place] Answer Date Recorded Taking care of a [...] or phone to manage your health (use MDLIVEt, see medical records, make appointments, get refills, message care team) No 02/18/2024 Sex and Gender Information Value Date Recorded Sex Assigned at Female 07/18/2022 1:14 PM EDT Gender Identity Female 10/08/2022 11:00 AM EDT Sexual Orientation Patient chooses not to answer 04/30/2023 3:04 PM EST Last Filed Vital Signs Vital Sign Reading Time Taken Comments Blood Pressure 98/60 02/18/2024 9:57 AM EST Pulse 50 02/18/2024 9:57 AM EST Temperature 36.7 ??C (98.1 ??F) 02/18/2024 9:57 AM ES T Respiratory Rate 16 12/23/2023 12:24 PM EDT Oxygen Saturation 99% 02/18/2024 9:57 AM EST Inhaled Oxygen Concentration - - Weight 49.4 kg (109 lb) 02/18/2024 9:57 AM EST Height 156.5 cm (5' 1.61 ) 01/06/2024 3:43 PM ED T Body Mass Index 20.19 01/06/2024 3:43 PM EDT Plan of Treatment Upcoming Encounters Date Type Department Care Team (Late st Contact Info) Description 09/09/2024 1:40 PM EDT Office Visit Cardiology [address] [facility] [address] [place] [address] Leoncio Andrews MD, MPH [address] [facility], 3rd [place] [address] Procedures Procedure Name Priority Date/Time Associated Diagnosis Comments ED PREMANAGE Routine 04/19/2024 11:56 AM EST HEPATITIS B SURFACE ANTIGEN Routine 03/25/2023 12:47 PM EST Annual physical exam HIV-1/2 AG/AB INITIAL SCREENING Routine 03/25/2023 12:47 PM EST Annual physical exam HC CHG IADNA CHLAMYDIA TRACHOMATIS AMPLIFIED PROBE TQ Routine 03/17/2023 8:25 PM EST Annual physical exam HCV AB REFLEX TO CONFIRMATORY/VIRAL LOAD AND GENOTYPE Nursing - STAT 02/07/2023 7:14 PM EST from Last 3 Months or Most Recently Relevant to Health Maintenance Results * ED PreManage (04/19/2024 11:56 AM EST) ED PreManage [facility] NOTIFICATION: TIFFANY NIETO Security Events No recent Security Events currently on file CARE PROVIDERS Name ? Phone ?Type ? Service Dates ---- ? ----- ?---- ? [facility] ? [phone] ? Pharmacy ? Unknown - Current WILMA LANGLEY ?Unknown ?Internal Medicine: Clinical Cardiac Electrophysiology ?Unknown - Current YIN DAWN ?Unknown ?Internal Medicine ?Unknown - Current ELISABETH HELMS ?[phone] ? Family Medicine ?Unknown - Current JIM GUERRERO ? [phone] ? Family Medicine ?Unknown - Current ED/UCC VISIT TRACKING (3 MO.) Visit Date ?Location ? City ST ?Type ? Dx/Complaint ?-------- ? ------- ?---- ? 04/19/2024 11:56 ?[facility] ?[place] ?Emergency ?-MED EVAL 04/14/2024 10:03 ?Saad Goldsmith ?[place] ?Emergency ?-Depression, unspecified 04/08/2024 17:08 ?[facility] ?[place] ?Emergency ?-Other laborer marine terminal (current) drug therapy 03/30/2024 05:57 ?Saad Goldsmith ?[place] ?Emergency ?-Unspecified convulsions 03/17/2024 16:26 ?Saad Goldsmith ?[place] ?Emergency ?-Epilepsy, unspecified, not intractable, without status ? epilepticus 03/08/2024 20:45 ?[facility] Taylor ?[place] ?Emergency ?-Other jail (current) drug therapy ? -Tuberous sclerosis ? -Unspecified convulsions 03/06/2024 19:03 ?[facility] Taylor ?[place] ?Emergency ?-Other laborer marine terminal (current) drug therapy ? -Tuberous sclerosis ? -Unspecified convulsions 03/04/2024 14:58 ?Saad Goldsmith ?[place] ?Emergency ?-Contusion of lower back and pelvis, initial encounter 02/15/2024 18:34 ?Saad Goldsmith ?[place] ?Emergency ?-Unspecified convulsions 02/02/2024 09:43 ?[facility] ?[place] ?Emergency ?-Other laborer marine terminal (current) drug therapy ? -Tuberous sclerosis ? -Unspecified convulsions INPATIENT VISIT TRACKING (1 MO.) Visit Date ?Location ?City ST ?Type ?Dx/Complaint ?-------- ?------- ?---- ? ED VISIT COUNT (12 MO.) Visits ?Location ------ ?--------- 16 ?[facility] 10 ?Saad Goldsmith 1 ? Augustine Taylor 27 ?Total Note: Visits indicate total known visits. [facility] has no Care Guidelines for this patient. [email or web address] PREMANAGE 04/19/2024 11:5 6 AM EST Unidentified Provider [facility] ED PREMANAGE N OTIFICATION Performing Organization Address City/[facility] Co de Phone Number PREMANAGE * HIV-1/2 AG/AB Initial Screening (03/25/2023 12:47 PM EST) HIV Ag/Ab Combined Qualitative NON-REACTI VE NON-REACT RAE 03/25/2023 3:30 PM EST [facility] 03/25/2023 12:4 7 PM EST 03/25/2023 12:56 PM EST [employer] LAB BLOOD ORDERABLES Performing Organization Address [facility] Co de Phone Number [facility] CLIA [id number] [place] [address], [place] * Hepatitis B surface Antigen (03/25/2023 12:47 PM EST) Hep B Surface Ag NON-REACTI VE NON-REACTI VE 03/25/2023 3:21 PM EST [facility]QUEST 03/25/2023 12:4 7 PM EST 03/25/2023 12:57 PM EST [employer] LAB BLOOD ORDERABLES Performing Organization Address [facility] Co de Phone Number [facility] CLIA [id number] [place] [address], * Chlamydia trachomatis/ Neisseria gonorrhoeae, PCR, Urine (03/17/2023 8:25 PM EST) Chlamydia trachomatis, PCR, Urine Negative Negative TEXT 03/19/2023 6:45 AM EST SUNQUEST Neisseria gonorrhoeae, PCR, Urine Negative Negative TEXT 03/19/2023 6:45 AM EST SUNQUEST Comment: This assay (CT/NG) has not been evaluated in patients younger than 14 years of age. Assay performance has NOT been validated for patient specimens self-collected at home or otherwise self collected outside the clinical setting. This assay is not intended to replace other exams or tests for diagnosis of urogenital infection. A negative test result does not preclude a possible infection. This assay should not be used to determine therapeutic success because nucleic acids may be present after antimicrobial therapy. False negative and/or invalid test results are possible for endocervical specimens with mucus, urine with whole blood, and for urogenital specimens from patients using various kjtw-heq-jxunynw vaginal gels and moisturizers. This assay has not been evaluated for the effects of variables such as vaginal discharge, use of tampons, douching, midstream instead of first catch urines, antimicrobial agents active against assay targets, and patients with a history of hysterectomy. Specimens with very high concentrations of C. trachomatis may affect detection of N. gonorrhoeae when it is present at concentrations near the assay limit of detection. Urine (First Voided Specimen) 03/17/2023 8:25 PM EST 03/18/2023 12:08 PM EST Jim Guerrero DO URINE ORDERABLES [facility] CLIA [id number] [address] [place] [address], * HCV Ab reflex to Confirmatory/Viral load and Genotype (02/07/2023 7:14 PM EST) Hepatitis C Antibody NON-REACTI VE NON-REACTI VE 02/07/2023 8:27 PM EST SUNQUEST 02/07/2023 7:14 PM EST 02/07/2023 7:30 PM EST Zahra Johnson MD, MPH LAB BL OOD ORDERABLES [facility] CLIA [id number] [place] [address], from Last 3 Months or Most Recently Relevant to Health Maintenance Advance Directives For more information, please contact: [phone] (Available ) * Full Code (Latest Code Status on File) Date Activated Date Inactivated Comments 02/07/2023 11:56 PM 04/19/2024 11:56 AM Question Answer Comments Does patient have MOLST form? No Reviewed with patient? No * Full Code Date Activated Date Inactivated Comments 02/28/2021 12:15 AM 11/22/2021 2:35 PM Question Answer Comments Does patient have MOLST form? No Reviewed with patient? No * Full Code Date Activated Date Inactivated Comments 01/06/2021 11:15 PM 02/27/2021 12:56 PM Question Answer Comments Does patient have MOLST form? No Reviewed as above: No Care Teams Windlace Machine Operator Relationship Specialty Start Date End Date [place] [address] PCP - General Family Medicine 09/07/23 [place] [address] PCP - Insurance Family Medicine 09/08/23
--- OUTSIDE RECORDS SUMMARY | 2024-06-12 02:26 | XMS_ITS | Encounter Summary ---
Author Organization [facility] Address 1 [place] [address] Phone Care Team Providers Care Sales Expert Home Theater Name Role Phone Tj Guerrero Primary Care Provider Rochelle Neville MD Unavailable Reason for Visit * Reason Comments Automated Refill Request Encounter Details Date Type Department Care Team (Late Contact Info) Description 10/08/2023 Refill Pediatric Neurology [address] [facility], Floor 7 [place] [address] Kain Scott MD [address] [address] Social History Tobacco Use Types Packs/Day Years Used Date Smoking Tobacco: Never Smokeless Tobacco: Never Alcohol Use Standard Drinks/Week Comments Never 0 (1 standard drink = 0.6 oz pur e alcohol) Housing Answer Date Recorded What is your living situation today? I have a [facility] place to live 02/13/2023 Sex and Gender Information Value Date Recorded Sex Assigned at Female 07/18/2022 1:14 PM EDT Gender Identity Female 10/08/2022 11:00 AM EDT Sexual Orientation Patient chooses not to answer 04/30/2023 3:04 PM EST documented as of this encounter Miscellaneous Notes * Telephone Encounter - Teresa Best RN - 10/08/2023 11:19 AM EDT duplicate documented in this encounter Plan of Treatment Upcoming Encounters Date Type Department Care Team (Late st Contact Info) Description 09/09/2024 1:40 PM EDT Office Visit Cardiology 732 [facility] 3 [place] [phone] Leoncio Andrews MD, MPH 732 [facility], 3rd [place] [phone] documented as of this encounter Visit Diagnoses Not on filedocumented in this encounter Care Teams Sales Expert Home Theater Relationship Specialty Start Date End Date [place] [address] PCP - General Family Medicine 09/07/23 [place] [address] PCP - Insurance Family Medicine 09/08/23 documented as of this encounter
--- OUTSIDE RECORDS SUMMARY | 2024-06-12 02:26 | XMS_ITS | Encounter Summary ---
Author Organization [facility] r Address 1 [place] [address] Phone Care Team Providers Care Sales Team Manager Name Role Phone Yin Keen MD, MPH Unavailable [phone] Pcp-Confirmed, No Primary Care Provider Unavaila ble Tj Guerrero DO Primary Care Provider [phone] Rochelle Neville MD Unavailable Reason for Visit * Reason Onset Date Comments Encounter Not Needed 02/18/2023 Encounter Details Date Type Department Care Team (Late st Contact Info) Description 02/18/2023 Telephone Family Medicine [address] [place] [address] [place] [address] Encounter Not Needed Social History Tobacco Use Types Packs/Day Years [...] PM EDT Office Visit Cardiology 732 [facility] FLR 3 [place] [phone] Leoncio Andrews MD, MPH 732 [facility], 3rd [place] [phone] documented as of this encounter Visit Diagnoses Not on filedocumented in this encounter Care Teams Sales Team Manager Relationship Specialty Start Date End Date Yin Keen MD, MPH [address] [place] [address] [place] [address] [place] - [place] [phone] PCP - Insurance 01/10/22 09/07/23 Pcp-Confirmed, No PCP - General 02/07/23 09/06/23 [place] [address] PCP - General Family Medicine 09/07/23 [place] [address] PCP - Insurance Family Medicine 09/08/23 documented as of this encounter
--- OUTSIDE RECORDS SUMMARY | 2024-06-12 02:26 | XMS_ITS | Encounter Summary ---
Author Organization [facility] r Address 1 [place] [address] Phone Care Team Providers Care Logging Specialist Name Role Phone Yin Keen MD, MPH Unavailable [phone] Pcp-Confirmed, No Primary Care Provider Unavaila Tj Villagran DO Primary Care Provider [phone] Rochelle Neville MD Unavailable Encounter Details Date Type Department Care Team (Late st Contact Info) Description 01/13/2023 Patient Outreach [address] [phone] [place] [address] Social History Tobacco Use Types Packs/Day Years Used Date Smoking Tobacco: Unknown Housing Answer Date Recorded What is your living situation today? I have a psychiatric to live 12/17/2022 Sex and Gender Information Value Date Recorded Sex Assigned at Female 07/18/2022 1:14 PM EDT Gender Identity Female 10/08/2022 11:00 AM EDT Sexual Orientation Patient chooses not to answer 04/30/2023 3:04 PM EST documented as of this encounter Plan of Treatment Upcoming Encounters Date Type Department Care Team (Late st Contact Info) Description 09/09/2024 1:40 PM EDT Office Visit Cardiology 732 [facility] FLR 3 [place] [phone] Leoncio Andrews MD, MPH 732 [facility], 3rd [place] [phone] documented as of this encounter Visit Diagnoses Not on filedocumented in this encounter Care Teams Logging Specialist Relationship Specialty Start Date End Date Yin Keen MD, MPH [address] [place] [address] [place] [address] [place] [phone] PCP - Insurance 01/10/22 09/07/23 Pcp-Confirmed, No PCP - General 02/07/23 09/06/23 Tj Guerrero DO [place], [place] PCP - General Family Medicine 09/07/23 Rochelle Neville MD [place], [place] PCP - Insurance Family Medicine 09/08/23 documented as of this encounter
--- OUTSIDE RECORDS SUMMARY | 2024-06-12 02:26 | XMS_ITS | Patient Health Record ---
Author Organization [facility] [address] [facility] Location Address [address] [place] [phone] Care Team Providers Care Forest Botany Instructor Name Role Phone Shaniqua TORRES, Kaylee Unavailable [phone] Raman GÓMEZ, Nanette Unavailable [phone] REASON FOR REFERRAL No Information SOCIAL HISTORY Sex Assigned At : Social History Observation Description Sex Assigned At Female Encounters Encounter Location Date Provider Diagnosis [facility] [address] [facility] Location [address] [place] [phone] 12/23/2023 [facility] [address] [facility] Location [address] [place] [phone] 01/05/2024 Nanette Camargo NP PLAN OF TREATMENT No Information Insurance Providers Payer Name Payer Address Payer Phone Subscriber Number Group Number Insured Name Patient Relationship to Insured Coverage Start Date Coverage End Date [facility]/ [facility] [address] [address] [place] [address] [id number] Tiffany Soni Self - patient is the insured
--- OUTSIDE RECORDS SUMMARY | 2024-06-12 02:26 | XMS_ITS | Encounter Summary ---
Author Organization [facility] Address 1 [place] [address] Phone Care Team Providers Care Cloth Tester Quality Name Role Phone Tj Guerrero Primary Care Provider Rochelle Neville MD Unavailable Reason for Visit * Reason Comments Automated Refill Request Encounter Details Date Type Department Care Team (Late Contact Info) Description 10/22/2023 Refill Pediatric Neurology 801 [facility], Floor 7 [place] [address] Kain Scott MD [address] [address] Social History Tobacco Use Types Packs/Day Years Used Date Smoking Tobacco: Never Smokeless Tobacco: Never Alcohol Use Standard Drinks/Week Comments Never 0 (1 standard drink = 0.6 oz pur e alcohol) Housing Answer Date Recorded What is your living situation today? I have a [facility] place to live 02/13/2023 Sex and Gender Information Value Date Recorded Sex Assigned at Female 07/18/2022 1:14 PM EDT Gender Identity Female 10/08/2022 11:00 AM EDT Sexual Orientation Patient chooses not to answer 04/30/2023 3:04 PM EST documented as of this encounter Miscellaneous Notes * Telephone Encounter - Teresa Best RN - 10/22/2023 1:37 PM EDT Duplicate documented in this encounter Plan of Treatment Upcoming Encounters Date Type Department Care Team (Late st Contact Info) Description 09/09/2024 1:40 PM EDT Office Visit Cardiology 732 [facility] 3 [place] [phone] Leoncio Andrews MD, MPH 732 [facility], 3rd [place] [phone] documented as of this encounter Visit Diagnoses Not on filedocumented in this encounter Care Teams Cloth Tester Quality Relationship Specialty Start Date End [place] [address] PCP - General Family Medicine 09/07/23 [place] [address] PCP - Insurance Family Medicine 09/08/23 documented as of this encounter
--- OUTSIDE RECORDS SUMMARY | 2024-06-12 02:26 | XMS_ITS | Encounter Summary ---
Author Organization [facility] r Address 1 [place] [address] Phone Care Team Providers Care Coin Machine Supervisor Name Role Phone Yolanda Tj LITTLEJOHN Primary Care Provider Rochelle Neville MD Unavailable Encounter Details Date Type Department Care Team (Late st Contact Info) Description 12/18/2023 Telephone [facility] 801 [facility] 1st [place] [address] [place] [address] Social History Tobacco Use Types Packs/Day Years Used Date Smoking Tobacco: Never Smokeless Tobacco: Never Alcohol Use Standard Drinks/Week Comments Never 0 (1 standard drink = 0.6 oz pur e alcohol) Housing Answer Date Recorded What is your living situation today? I have a [facility] to live 11/11/2023 Sex and Gender Information [...] 1:40 PM EDT Office Visit Cardiology [facility] [place] [phone] Leoncio Andrews MD, MPH 732 [facility], 3rd [place] [phone] documented as of this encounter Visit Diagnoses Not on filedocumented in this encounter Care Teams Coin Machine Supervisor Relationship Specialty Start Date End [place] [address] PCP - General Family Medicine 09/07/23 [place] [address] PCP - Insurance Family Medicine 09/08/23 documented as of this encounter
--- OUTSIDE RECORDS SUMMARY | 2024-06-12 02:26 | XMS_ITS | Encounter Summary ---
Author Organization [facility] Address 1 [place] [address] Phone Care Team Providers Care Ingot Buggy Operator Name Role Phone Yin Keen MD, MPH Unavailable [phone] Pcp-Confirmed, No Primary Care Provider Unavaila Tj Villagran DO Primary Care Provider [phone] Rochelle Neville MD Unavailable Encounter Details Date Type Department Care Team (Late st Contact Info) Description 09/04/2023 Telephone Cardiology [address] [address] [place] [address] Leoncio Andrews MD, MPH 732 [facility], 3rd [place] [address] Social History Tobacco Use Types Packs/Day Years Used Date Smoking Tobacco: Never Smokeless Tobacco: Never Alcohol Use Standard Drinks/Week Comments Never 0 (1 standard drink = 0.6 oz pur e alcohol) Housing Answer Date Recorded What is your living situation today? I have a [facility] place to live 02/13/2023 Sex and Gender Information Value Date Recorded Sex Assigned at Female 07/18/2022 1:14 PM EDT Gender Identity Female 10/08/2022 11:00 AM EDT Sexual Orientation Patient chooses not to answer 04/30/2023 3:04 PM EST documented as of this encounter Miscellaneous Notes * Telephone Encounter - Lizzy Milner MA - 09/05/2023 8:31 AM EDT No chief complaint on file. documented in this encounter Plan of Treatment Upcoming Encounters Date Type Department Care Team (Late st Contact Info) Description 09/09/2024 1:40 PM EDT Office Visit Cardiology [address] [place] [address] 3 [place] [phone] Leoncio Andrews MD, MPH 732 [facility], 3rd [place] [phone] documented as of this encounter Visit Diagnoses Not on filedocumented in this encounter Care Teams Ingot Buggy Operator Relationship Specialty Start Date End Date Yin Keen MD, MPH [address] [place] [address] [place] [address] [place] - [place] [phone] PCP - Insurance 01/10/22 09/07/23 Pcp-Confirmed, No PCP - General 02/07/23 09/06/23 Tj Guerrero DO [place], [place] PCP - General Family Medicine 09/07/23 Rochelle Neville MD [place], [place] PCP - Insurance Family Medicine 09/08/23 documented as of this encounter
--- OUTSIDE RECORDS SUMMARY | 2024-06-12 02:26 | XMS_ITS | Encounter Summary ---
Author Organization [facility] Address 1 [place] [address] Phone Care Team Providers Care Tinning Equipment Tender Name Role Phone Tj Guerrero DO Primary Care Provider Rochelle Neville MD Unavailable Reason for Visit * Reason Onset Date Comments Forms 12/25/2023 Encounter Details Date Type Department Care Team ([facility] Contact Info) Description 12/25/2023 Telephone Family Medicine [address] [place] [address] [place] [address] Forms Social History Tobacco Use Types Packs/Day Years Used Date Smoking Tobacco: Never Smokeless Tobacco: Never Alcohol Use Standard Drinks/Week Comments Never 0 (1 standard drink = 0.6 oz pur e alcohol) Housing Answer Date Recorded What is your living situation today? I have a [facility] place to live 11/11/2023 Sex and Gender Information Value Date Recorded Sex Assigned at Female 07/18/2022 1:14 PM EDT Gender Identity Female 10/08/2022 11:00 AM EDT Sexual Orientation Patient chooses not to answer 04/30/2023 3:04 PM EST documented as of this encounter Miscellaneous Notes * Telephone Encounter - Argentina Guzmán - 12/25/2023 3:28 PM EDT Patient Reported Reason for Call Patient presents with Forms Fact Finding Questions Type of form requested: Other If Other, specify: Dr. Kingston When was form received: 12/17/23 How was form received: by fax Preferred method for return: fax [facility] called to follow up on referral that was needed to start home health care Stated it was suppose to be signed after pt last visit on 12/22 with pcp Please follow up to assist CB: [phone] * Telephone Encounter - Reva Carlson MA - 12/25/2023 1:25 PM EDT Patient Reported Reason for Call Patient presents with Forms Fact Finding Questions Type of form requested: Other If Other, specify: Dr. Kingston When was form received: 12/17/23 How was form received: by fax Preferred method for return: fax Erin is calling from [employer] [place] [facility] in regards of the Dr. Kingston form. Please call to assist. Adv of the tat Cb [phone] documented in this encounter Plan of Treatment Upcoming Encounters Date Type Department Care Team (Late st Contact Info) Description 09/09/2024 1:40 PM EDT Office Visit Cardiology 732 [facility] 3 [place] [address] Leoncio Andrews MD, MPH 732 [facility], 3rd [place] [address] documented as of this encounter Visit Diagnoses Not on filedocumented in this encounter Care Teams Tinning Equipment Tender Relationship Specialty Start Date End [place] [address] PCP - General Family Medicine 09/07/23 [place] [address] PCP - Insurance Family Medicine 09/08/23 documented as of this encounter
--- OUTSIDE RECORDS SUMMARY | 2024-06-12 02:26 | XMS_ITS | Encounter Summary ---
Author Organization [facility] r Address 1 [place] [address] Phone Care Team Providers Care Household Worker Name Role Phone Yin Keen MD, MPH Unavailable [phone] Pcp-Confirmed, No Primary Care Provider Unavaila ble Tj Guerrero DO Primary Care Provider [phone] Rochelle Neville MD Unavailable Reason for Visit * Reason Onset Date Comments Housing 06/17/2023 Encounter Details Date Type Department Care Team (Late st Contact Info) Description 06/17/2023 Telephone Family Medicine [address] [place] [address] [place] [address] Housing Social History Tobacco Use Types Packs/Day Years [...] encounter Miscellaneous Notes * Telephone Encounter - Yaima Arellano - 06/17/2023 4:24 PM EDT Patient Reported Reason for Call Patient presents with Jc Lim, JUAN from [facility], calling requesting an update regarding housing. Carina states she is very concerned for the pt and would like this request to be rushed. She says the pt is living in a physically unsafe environment. Informed [facility] that it looks like the encounter was written by someone outside of this clinic. PLEASE SEE ENCOUNTER FROM 06/08 Called [facility] for assistance. TL sent an escalation email and advised me to send encounter like normal. Advised [facility] that someone would reach out with an update within the next 48-72 hrs. documented in this encounter Plan of Treatment Upcoming Encounters Date Type Department Care Team (Late st Contact Info) Description 09/09/2024 1:40 PM EDT Office Visit Cardiology [address] [place] [phone] Leoncio Andrews MD, MPH 732 [facility], 3rd [place] [address] documented as of this encounter Visit Diagnoses Not on filedocumented in this encounter Care Teams Household Worker Relationship Specialty Start Date End Date Yin Keen MD, MPH [address] [place] [address] - [place] [phone] PCP - Insurance 01/10/22 09/07/23 Pcp-Confirmed, No PCP - General 02/07/23 09/06/23 [place] [address] PCP - General Family Medicine 09/07/23 [place] [address] PCP - Insurance Family Medicine 09/08/23 documented as of this encounter
--- OUTSIDE RECORDS SUMMARY | 2024-06-12 02:26 | XMS_ITS | Encounter Summary ---
Author Organization [facility] r Address 1 [place] [address] Phone Care Team Providers Care Key Operator Name Role Phone Tj Guerrero DO Primary Care Provider [phone] Rochelle Neville MD Unavailable Reason for Visit * Reason Onset Date Comments Other Clinical 12/17/2023 [facility] Encounter Details Date Type Department Care Team ([facility] Contact Info) Description 12/17/2023 Telephone Family Medicine [address] [place] [address] [place] [address] Other Clinical ([employer]) Social History Tobacco Use Types Packs/Day Years Used Date Smoking Tobacco: Never Smokeless Tobacco: Never Alcohol Use Standard Drinks/Week Comments Never 0 (1 standard drink = 0.6 oz pur e alcohol) Housing Answer Date Recorded What is your living situation today? I have a [facility] place to live 11/11/2023 Sex and Gender Information Value Date Recorded Sex Assigned at Female 07/18/2022 1:14 PM EDT Gender Identity Female 10/08/2022 11:00 AM EDT Sexual Orientation Patient chooses not to answer 04/30/2023 3:04 PM EST documented as of this encounter Miscellaneous Notes * Telephone Encounter - Tj Guerrero DO - 12/18/2023 6:54 PM EDT Placed VBA referral for medication management with [facility], which is pt's preferred service. * Telephone Encounter - Antonella Gong RN - 12/17/2023 9:52 AM EDT Will send message to PCP to see if she wants to enter a new [facility] referral so we can send to the new preferred agency [facility] RN as well as FYI to assist with coordination Future Appointments Date Time Provider Department Center 12/23/2023 11:20 AM Tj Guerrero DO [facility] None 09/09/2024 1:40 PM Leoncio Andrews MD, MPH PRE CARDIO None * Telephone Encounter - Nathan Arzola - 12/17/2023 9:49 AM EDT Patient Reported Reason for Call Patient presents with Other Clinical [facility] home [facility] company Fact Finding Questions Reason for call comments field updated: Yes Pt's friend is calling regarding pt's home healthcare. Right now, she has [facility] [facility], but doesn't like the person that came out. She wants to change to [facility]. CB [phone]. Needs [employer]uneian/Nishant retail product advisor. 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
--- OUTSIDE RECORDS SUMMARY | 2024-06-12 02:26 | XMS_ITS | Clinical Summary ---
Author Organization [facility] Address [address] [place] [address] Phone Care Team Providers Care Retrofit Installer Name Role Phone Jim Guerrero DO Primary Care Provider [phone] Elisabeth Helms MD Unavailable Allergies No known active allergies Medications Medication Sig Dispensed Refills Start Date End Date Status midazolam (NAYZILAM) 5 mg/spray (0.1 mL) [place] 1 spray as a single dose in [...] seizures, and TSC associated neuropsychiatric disorder. Ambulatory [facility] team: Chuckie Ibarra, RAVEN, URIEL Lozano, Precious Carrasco, [facility] RN [phone] If inpatient, please contact Ambulatory [facility] team. Care team: PCP: Dr. Yin Dawn MD, MPH Specialists: Dr. Dee Scott MD (Neurology) Behavioral Health Providers: Dr. Andrea Miranda, Long-Term Supports: Others: Housing/Home supports and services/DME: Housing situation: housed Family supports: Lives with mother and other family members. VNA: [employer] [facility] Agency - Carina RN FRAME REPAIRER: Current DME owned: Others: Pharmacy services: Clinical Pharmacy Support: [facility] Pharmacy Support as needed for Med access Known med adherence barriers: Lower health literacy and depression Med adherence packaging: No Medication delivery: Preferred pharmacies: [facility] ; Problem Noted Date Diagnosed Date Bilateral [...] Pt presenting after an ED visit to [place] for seizure yesterday. Per discharge summary, keppra 2,000 mg PO BID was added for her seizures. She is already on lacosamide 200 mg PO BID, divalproex 500 mg PO bedtime, zonisamide 200 mg PO bedtime, folic acid daily. Per [facility], pt has not seen Neurology at [facility] since 06/09/23, despite multiple visits to [place] for breakthrough seizures. - Will message pt's Neurologist for follow-up, since med rec was very confusing today. She also does not have a follow-up appt in her chart. - Will also message pt's immigration case worker to assist with scheduling and PT1. Lung [...] thoughts) and intrusive thoughts. Recent hospitalization in [place] for agitated behaviors in october 2021.No history [...] CCM Collaborate with Neurology Reinforce information regarding [employer] [facility] [place] Assessment & Plan (11/24/2022 1:26 PM EDT): - Continue seroquel 25 mg Bid and 100 qhs - Place resource work referral for food pantry - Follow up with CCM and is eligible - Provide information regarding [employer] [facility] [place] for community support - Encourage providers to call patient directly given appears to be more receptive and able to make appointments ([phone]) Assessment & Plan (11/24/2022 12:58 PM EDT): [...] behavioral supports for patient and caregivers - [facility] Assessment & Plan (06/12/2022 1:18 PM EDT): Assessment & Plan (01/09/2022 3:07 PM EDT): - Continue to monitor - Continue Seroquel 25 mg BID PRN 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 - Constellation of findings including: brain MRI w/ linear hyperintensities, one [place] on R arm, possible Shagreen patch on [...] given to her today Breakthrough seizure 01/06/2021 Encounters Date Type Department Care Team Description 06/11/2024 Telephone Neurology [address] [place] [address] [place] [address] Omer Gracia MD 06/02/[address] [phone] Chuckie Ibarra 06/02/2024 Patient Outreach [address] [phone] Precious Carrasco RN 05/20/2024 Patient Outreach [address] [phone] Arturo Simons 05/17/2024 Patient Outreach [facility] [address] [phone] Arturo Simons 05/12/2024 Refill General Internal Medicine - [facility] [address] [place] [address]. [address] [place] [address] Shree Delgado, [facility] Health maintenance examination; Neck pain 05/12/2024 Telephone General Internal Medicine - [place] [address] [place] [address]. [address] [place] [phone] Shree Delgado CPhT 04/28/2024 Patient Outreach [address] [phone] Arturo Simons 04/22/2024 Telephone Family Medicine [address] [place] [phone] iJm Guerrero, DO 04/21/2024 Telephone Family Medicine [address] [place] [address] Jim Guerrero, DO 04/19/2024 11:56 AM EST - 04/19/2024 12:21 PM EST Emergency [facility] Emergency Department [address] [place] [phone] Discharge Disposition: LWOBS 04/16/2024 Telephone Family Medicine [address] [place] [address] Pcp-Confirmed, No Letter Request 04/16/2024 Telephone Family Medicine [address] [place] [address] Pcp-Confirmed, No Forms 04/13/2024 Patient Outreach [address] [phone] Arturo Simons 04/12/2024 Telephone General Internal Medicine - [place] [address] [place] [address]. [address] [place] [phone] Shree Delgado CPhT 03/25/2024 Refill [facility] Call Center [address] [facility] [place] [phone] Arya De Leon, tangled yarn worker Tuberous sclerosis; Epilepsy with partial complex seizures, with status epilepticus 03/24/2024 Patient Outreach [address] [phone] Arturo Simons 03/24/[address] [facility] 1[facility] [place] [phone] Chuckie Ibarra 03/24/2024 Refill Pediatric Neurology [address] [facility], Floor [address] [place] [address] Chato Ji MD 03/18/2024 Patient Outreach [facility] [address] [facility] [place] [phone] Precious Carrasco RN from Last 3 Months Immunizations Name Administration Dates Next Due Covid-19 [...] your living situation today? I have a [facility] place to live 02/18/2024 Medications Answer Date Recorded Do you have trouble paying for prescriptions? No 02/18/2024 Utilities Answer Date Recorded Do you have trouble paying f or utilites (heat, electricity, internet, or phone bill)? No 02/18/2024 Caregiving [place] Answer Date Recorded Taking care of a [...] or phone to manage your health (use [employer], see medical records, make appointments, get refills, [...] 1:40 PM EDT Office Visit Cardiology [address] [facility] [address] [place] [address] Leoncio Andrews MD, MPH [address] [facility], 3rd [place] [address] Health Maintenance Due Date Last Done Comments Diabetes Screening 2000 LIPID PANEL 2000 Psych TERESA-7 Screening 2000 Psych PCL-5 Screening 2000 Oral Health Screen 03/28/2001 HEIP Disability Screen 2005 Psych Substance Use Screen 2012 Relationship Safety Screening 10/27/2015 Cervical Cancer Screening 2021 Colposcopy 2021 PAP SMEAR 2021 Pap + HPV 2021 HPV VACCINES (2 - 3-dose series) 04/14/2023 03/17/2023 COVID-19 Vaccine ( season) 2023 03/17/2023, 03/23/2021, 03/23/2021, Additional history exists LARC-Nexplanon implant 01/17/2024 01/16/2021 CHLAMYDIA SCREENING 03/17/2024 03/17/2023, Psych PHQ Screening 05/18/2024 02/18/2024, 02/18/2024, 02/18/2024 BEHAVIORAL HEALTH SCREEN 08/18/2024 024, 02/18/2024, 02/18/2024 THRIVE SCREENING 08/18/2024 02/18/2024 DTAP/TDAP VACCINE (2 - Td or Tdap) 03/17/2033 03/17/2023 Zoster Vaccine (1 of 2) 2050 Hepatitis C Antibody Lifetime Screening Completed 02/07/2023 HIV Lifetime Screening Completed 03/25/2023, 2020 Hepatitis B sAg Lifetime Screening Completed 03/25/2023, 01/07/2021 INFLUENZA VACCINE Completed 12/23/2023, , 01/17/2021 HEPATITIS B VACCINES Discontinued 02/18/2024, 01/05/20 MMR VACCINES Discontinued 02/18/2024, 12/29/2023 IPV VACCINES Aged Out No longer eligi ble based on patient's age to complete this topic Pneumonia Vaccine 0-64 Aged Out No lo nger eligible based on patient's age to complete this topic ROTAVIRUS VACCINES Aged Out No longer eligible based on [...] * ED PreManage (04/19/2024 11:56 AM EST) Pathologist [facility] ED PreManage [facility] NOTIFICATION: TIFFANY NIETO Security Events No recent Security Events currently on file CARE PROVIDERS Name ? Phone ?Type ? Service Dates ---- ? ----- ?---- ? [facility] ? [phone] ? Pharmacy ? Unknown - Current WILMA LANGLEY ?Unknown ?Internal Medicine: Clinical Cardiac Electrophysiology ?Unknown - Current YIN DAWN ?Unknown ?Internal Medicine ?Unknown - Current ELISABETH HELMS ?[id number] ? Family Medicine ?Unknown - Current JIM GUERRERO ? [phone] ? Family Medicine ?Unknown - Current ED/UCC VISIT TRACKING (3 MO.) Visit Date ?Location ? City ST ?Type ? Dx/Complaint ?-------- ? ------- ?---- ? 04/19/2024 11:56 ?[facility] ?[place] ?Emergency ?-MED EVAL 04/14/2024 10:03 ?Saad Goldsmith ?[place] ?Emergency ?-Depression, unspecified 04/08/2024 17:08 ?Good Boyd Taylor ?[place] ?Emergency ?-Other mcc (current) drug therapy 03/30/2024 05:57 ?Saad Goldsmith ?[place] ?Emergency ?-Unspecified convulsions 03/17/2024 16:26 ?Saad Goldsmith ?[place] ?Emergency ?-Epilepsy, unspecified, not intractable, without status ? epilepticus 03/08/2024 20:45 ?Good Boyd Patel.C. ?[place] ?Emergency ?-Other mcc (current) drug therapy ? -Tuberous sclerosis ? -Unspecified convulsions 03/06/2024 19:03 ?Good Boyd Patel.C. ?[place] ?Emergency ?-Other longshore equipment operator (current) drug therapy ? -Tuberous sclerosis ? -Unspecified convulsions 03/04/2024 14:58 ?Saad Goldsmith ?[place] ?Emergency ?-Contusion of lower back and pelvis, initial encounter 02/15/2024 18:34 ?Saad Goldsmith ?[place] ?Emergency ?-Unspecified convulsions 02/02/2024 09:43 ?Gonzalo Nix M[facility] ?[place] ?Emergency ?-Other mcc (current) drug therapy ? -Tuberous sclerosis ? -Unspecified convulsions INPATIENT VISIT TRACKING (1 MO.) Visit Date ?Location ?City ST ?Type ?Dx/Complaint ?-------- ?------- ?---- ? ED VISIT COUNT (12 MO.) Visits ?Location ------ ?--------- 16 ?Gonzalo Nix M.[facility] 10 ?Saad Goldsmith 1 ? Augustine Taylor 27 ?Total Note: Visits indicate total known visits. [facility] has no Care Guidelines for this patient. [email or web address] PREMANAGE 04/19/2024 11:5 6 AM EST Unidentified Provider [facility] ED PREMANAGE N OTIFICATION Performing Organization Address City/[facility]/ZIP Co de Phone Number PREMANAGE * HIV-1/2 AG/AB Initial Screening (03/25/2023 12:47 PM EST) HIV Ag/Ab Combined Qualitative NON-REACTI VE NON-REACT RAE 03/25/2023 3:30 PM EST SUNQUEST 03/25/2023 12:4 7 PM EST 03/25/2023 12:56 PM EST [facility] LAB BLOOD ORDERABLES Performing Organization Address [facility]/[place] Co de Phone Number [facility] CLIA [id number] [place] [address], [place] * Hepatitis B surface Antigen (03/25/2023 12:47 PM EST) Hep B Surface Ag NON-REACTI VE NON-REACTI VE 03/25/2023 3:21 PM EST SUNQUEST 03/25/2023 12:4 7 PM EST 03/25/2023 12:57 PM EST [facility] LAB BLOOD ORDERABLES Performing Organization Address [facility] Co de Phone Number [facility] CLIA [id number] [place] [address], [place] * Chlamydia trachomatis/ Neisseria gonorrhoeae, PCR, Urine [...] for urogenital specimens from patients using various cldl-nki-guqabtl vaginal gels and moisturizers. This assay has [...] PM EST Jim Guerrero DO URINE ORDERABLES [facility] CLIA [id number] [address] [facility] [place] [address], * HCV Ab reflex to Confirmatory/Viral load and Genotype (02/07/2023 7:14 PM EST) Hepatitis C Antibody NON-REACTI VE NON-REACTI VE 02/07/2023 8:27 PM EST SUNQUEST 02/07/2023 7:14 PM EST 02/07/2023 7:30 PM EST Zahra Johnson MD, MPH LAB BL OOD ORDERABLES [facility] CLIA [id number] [place] [address], from Last 3 Months or Most Recently Relevant to Health Maintenance Advance Directives For more information, please contact: [phone] (Available ) * Full Code (Latest Code [...] No Reviewed as above: No Care Teams Retrofit Installer Relationship Specialty Start Date End [place] [address] PCP - General Family Medicine 09/07/23 [place] [address] PCP - Insurance Family Medicine 09/08/23
--- OUTSIDE RECORDS SUMMARY | 2024-06-12 02:26 | XMS_ITS ---
Author Organization [facility] [address] [facility] Location Address [address] [place] [phone] Care Team Providers Care Barley Steeper Name Role Phone Nanette Camargo NP [phone] REASON FOR VISIT follow-up hospitalization SOCIAL HISTORY Sex Assigned At : Social History Observation Description Sex Assigned At Female Encounters Encounter Location Date Provider Diagnosis [facility] [address] [place] [address] [place] [phone] 01/05/2024 Nanette Camargo NP PLAN OF TREATMENT No Information Progress Notes * Tiffany SONI PDOB:0 2000 (23 yo F)Acc No.[id number]:01/05/2024 Patient:??Hitesh SONI Provider:??Nanette Camargo NP :2000?Age:23 Y?Sex:Fe male Date:01/05/2024 Address:[address] [place] [address] [address], [facility] Subjective: * Chief Complaints: * ?1. Follow-up hospitali zation. * HPI: ?Constitutional:? [CC]-The patient presents with a neurological Chief Complaint of: ?. ? [HPI] ?. ?-Duration (Onset): ?. ? -Timing (how often): ?. ?-Location: ?. ? -Severity: ?. ? -Quality / Character: ?. ? -Context (what the patient would be doing when the symptoms occur): ?. ? -Modifying factors: ?. ? -Associated symptoms: ?. ? [Records reviewed with the patient today] - no records. * Medical History:?? Objective: Assessment: Plan: * Treatment: * Billing Information: * Visit Code:?? * Procedure Codes:?? * Sign off status: Pending * Provider:??Nanette Camargo NP Date:?? History and Physical Notes * HPI (History of Present Illness) Category Sub-Category Detail Notes Category Not es Constitutional [CC]-The patient presents with a neurological Chief Complaint of: . [HPI] . -Duration (Onset): . -Timing (how often): . -Location: . -Severity: . -Quality / Character: . -Context (what the patient would be doing when the symptoms occur): . -Modifying factors: . -Associated symptoms: . [Records reviewed with the patient today] - no records
--- OUTSIDE RECORDS SUMMARY | 2024-06-12 02:26 | XMS_ITS | Encounter Summary ---
Author Organization [facility] Address 1 [place] [address] Phone Care Team Providers Care Biomedical Electronics Technician Name Role Phone Travis Bruno MD Unavailable Yin Keen MD, MPH Unavailable [phone] Pcp-Confirmed, No Primary Care Provider Unavaila Tj Villagran DO Primary Care Provider [phone] Rochelle Neville MD Unavailable Encounter Details Date Type Department Care Team (Late st Contact Info) Description 12/28/2021 Documentation [facility] DEPARTMENT [address] [place] [phone] Onbase, Scan Social History Tobacco Use Types Packs/Day Years Used Date Smoking Tobacco: Unknown Housing Answer Date Recorded What is your living situation today? I have a [facility] place to live 12/25/2021 Sex and [...] have Coronavirus / COVID-19? No / Unsure 12/27/2021 11:00 AM EDT documented as of this encounter Plan of Treatment Upcoming Encounters Date Type Department Care Team (Late st Contact Info) Description 09/09/2024 1:40 PM EDT Office Visit Cardiology [address] [place] [address] [address] [place] [phone] Leoncio Andrews MD, MPH [address] [place] [phone] documented as of this encounter Visit Diagnoses Not on filedocumented in this encounter Care Teams Biomedical Electronics Technician Relationship Specialty Start Date End Date Travis Bruno MD [address] [place] [phone] PCP - Insurance 11/28/21 01/09/22 Yin Keen MD, MPH [address] [place] [address] - [place] [phone] PCP - Insurance 01/10/22 09/07/23 Pcp-Confirmed, No PCP - General 02/07/23 09/06/23 [place] [address] PCP - General Family Medicine 09/07/23 [place] [address] PCP - Insurance Family Medicine 09/08/23 documented as of this encounter
--- OUTSIDE RECORDS SUMMARY | 2024-06-12 02:26 | XMS_ITS | Encounter Summary ---
Author Organization [facility] r Address 1 [place] [address] Phone Care Team Providers Care Lapping Machine Tender Name Role Phone Yolanda Tj LITTLEJOHN Primary Care Provider Rochelle Neville MD Unavailable Encounter Details Date Type Department Care Team (Late st Contact Info) Description 09/25/2023 Telephone [facility] [address] [facility] 1st [place] [address] [place] [address] Social History Tobacco Use Types Packs/Day Years Used Date Smoking Tobacco: Never Smokeless Tobacco: Never Alcohol Use Standard Drinks/Week Comments Never 0 (1 standard drink = 0.6 oz pur e alcohol) Housing Answer Date Recorded What is your living situation today? I have a [facility] to live 02/13/2023 Sex and Gender Information [...] [facility] [place] [phone] Leoncio Andrews MD, MPH [address] [facility], 3rd [place] [phone] documented as of this encounter Visit Diagnoses Not on filedocumented in this encounter Care Teams Lapping Machine Tender Relationship Specialty Start Date End [place] [address] PCP - General Family Medicine 09/07/23 [place] [address] PCP - Insurance Family Medicine 09/08/23 documented as of this encounter
[2024-06-12 03:42] VITALS: BP 108/64; PULSE 80; RESP 14; TEMP 36.7; O2SAT 100
[2024-06-12 03:43] VITALS: BMI 17.7
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
[2024-06-12 08:49] VITALS: BP 103/68; PULSE 76; RESP 16; TEMP 36.4; O2SAT 99
[2024-06-12 09:41] LABS: Alanine Aminotransferase 11 U/L (0-31); Albumin Level 4.5 g/dL (3.5-5.0); Alkaline Phosphatase 43 U/L (39-117); Anion Gap 12 (12-20); Aspartate Amino Transferase 17 U/L (5-31); Bilirubin Total 0.4 mg/dL (0.0-1.0); Blood Urea Nitrogen 7 mg/dL (9-16); Calcium 9.5 mg/dL (8.4-10.2); Carbon Dioxide 23 mmol/L (22-29); Chloride 105 mmol/L (96-108); Creatinine Clr Calc Pharmacy 110.9; Estimated Glomerular Filt Rate > 60; Glucose Random 105 mg/dL (60-115); Potassium 4.2 mmol/L (3.3-5.1); Sodium 136 mmol/L (135-145); Total Protein 7.8 g/dL (6.5-8.0)
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
[2024-06-12] MEDS: Cholecalciferol (Vitamin D3) 25 MCG TABLET PO (12:12)
[2024-06-12] MEDS: Divalproex Sodium 500 MG TABLET.DR PO (12:12)
[2024-06-12] MEDS: Folic Acid 1 MG TABLET PO (12:12)
[2024-06-12] MEDS: levETIRAcetam 250 MG TABLET 750 MG PO (12:16)
[2024-06-12] MEDS: Lacosamide 100 MG TABLET 200 MG PO ×2 (13:11→21:10)
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
[2024-06-12 20:00] VITALS: BP 115/63; PULSE 97; RESP 16; TEMP 37.1; O2SAT 100
[2024-06-12] MEDS: levETIRAcetam 500 MG TABLET 1500 MG PO (21:09)
[2024-06-12] MEDS: Zonisamide 100 MG CAPSULE PO (21:10)
[2024-06-12] MEDS: Acetaminophen 325 MG TABLET 650 MG PO (21:24)
[2024-06-13 08:09] VITALS: BP 109/69; PULSE 86; RESP 12; TEMP 36.4; O2SAT 95
[2024-06-13 08:12] LABS: Estimated Average Glucose 97 mg/dL; Hemoglobin A1C 106.7507 umol/L; Total Hemoglobin (HGBA1C) 3408.8749 umol/L
[2024-06-13 08:22] LABS: Valproate 37.1 mcg/mL (50.0-100.0)
[2024-06-13 08:31] LABS: Cholesterol 136 mg/dL (<200); HDL Cholesterol 66 mg/dL (>40); LDL Cholesterol Calculated 65 mg/dL (<100); Triglycerides 29 mg/dL (<150)
[2024-06-13] MEDS: Lacosamide 100 MG TABLET 200 MG PO ×2 (08:43→20:35)
[2024-06-13] MEDS: levETIRAcetam 250 MG TABLET 750 MG PO (08:43)
[2024-06-13] MEDS: Folic Acid 1 MG TABLET PO (08:43)
[2024-06-13] MEDS: Divalproex Sodium 500 MG TABLET.DR PO (08:43)
[2024-06-13] MEDS: Cholecalciferol (Vitamin D3) 25 MCG TABLET PO (08:43)
[2024-06-13 08:46] LABS: TSH reflex Free T4 2.67 uIU/mL (0.32-4.0)
[2024-06-13] MEDS: Acetaminophen 325 MG TABLET 650 MG PO ×2 (11:46→20:34)
[2024-06-13] MEDS: hydrOXYzine HCL 25 MG TABLET PO (11:47)
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
[2024-06-13 19:15] VITALS: BP 115/69; PULSE 88; RESP 16; TEMP 36.6; O2SAT 100
[2024-06-13] MEDS: Divalproex Sodium ER 500 MG TAB.ER.24H 1000 MG PO (20:34)
[2024-06-13] MEDS: levETIRAcetam 500 MG TABLET 1500 MG PO (20:34)
[2024-06-13] MEDS: Zonisamide 100 MG CAPSULE PO (20:35)
[2024-06-13] MEDS: traZODone HCL 50 MG TABLET PO ×2 (20:35→23:28)
[2024-06-14 10:00] VITALS: BP 116/74; PULSE 94; RESP 16; TEMP 36.6; O2SAT 98
[2024-06-14] MEDS: Lacosamide 100 MG TABLET 200 MG PO ×2 (10:48→21:46)
[2024-06-14] MEDS: Cholecalciferol (Vitamin D3) 25 MCG TABLET PO (10:49)
[2024-06-14] MEDS: levETIRAcetam 250 MG TABLET 750 MG PO (10:49)
[2024-06-14] MEDS: Folic Acid 1 MG TABLET PO (10:49)
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
[2024-06-14 19:55] VITALS: BP 107/66; PULSE 75; RESP 15; TEMP 36.3; O2SAT 98
[2024-06-14] MEDS: Divalproex Sodium ER 500 MG TAB.ER.24H 1000 MG PO (21:46)
[2024-06-14] MEDS: Zonisamide 100 MG CAPSULE PO (21:46)
[2024-06-14] MEDS: levETIRAcetam 500 MG TABLET 1500 MG PO (21:46)
[2024-06-14] MEDS: OLANZapine 5 MG TABLET PO (21:46)
[2024-06-15] MEDS: Cholecalciferol (Vitamin D3) 25 MCG TABLET PO (08:48)
[2024-06-15] MEDS: Folic Acid 1 MG TABLET PO (08:48)
[2024-06-15] MEDS: Lacosamide 100 MG TABLET 200 MG PO ×2 (08:48→21:50)
[2024-06-15] MEDS: levETIRAcetam 250 MG TABLET 750 MG PO (08:48)
[2024-06-15 09:47] VITALS: BP 91/54; PULSE 82; RESP 16; TEMP 36.9; O2SAT 99
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
[2024-06-15 20:00] VITALS: BP 99/56; PULSE 86; RESP 15; TEMP 36.8; O2SAT 100
[2024-06-15] MEDS: Divalproex Sodium ER 500 MG TAB.ER.24H 1000 MG PO (21:49)
[2024-06-15] MEDS: levETIRAcetam 500 MG TABLET 1500 MG PO (21:50)
[2024-06-15] MEDS: OLANZapine 5 MG TABLET PO (21:50)
[2024-06-15] MEDS: Zonisamide 100 MG CAPSULE PO (21:50)
[2024-06-16 07:40] VITALS: BP 86/47; PULSE 60; RESP 14; TEMP 37.1; O2SAT 99
[2024-06-16 08:09] LABS: Ammonia 39 umol/L (13-55)
[2024-06-16 08:15] LABS: Valproate 63.7 mcg/mL (50.0-100.0)
[2024-06-16 08:18] LABS: Alanine Aminotransferase 10 U/L (0-31); Albumin Level 3.7 g/dL (3.5-5.0); Alkaline Phosphatase 39 U/L (39-117); Aspartate Amino Transferase 13 U/L (5-31); Bilirubin Direct < 0.2 mg/dL (0.0-0.5); Bilirubin Total 0.2 mg/dL (0.0-1.0); Total Protein 6.5 g/dL (6.5-8.0)
[2024-06-16] MEDS: Folic Acid 1 MG TABLET PO (09:48)
[2024-06-16] MEDS: Cholecalciferol (Vitamin D3) 25 MCG TABLET PO (09:48)
[2024-06-16] MEDS: Lacosamide 100 MG TABLET 200 MG PO ×2 (09:49→20:18)
[2024-06-16] MEDS: levETIRAcetam 250 MG TABLET 750 MG PO (09:49)
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
[2024-06-16 20:00] VITALS: BP 120/75; PULSE 73; RESP 16; TEMP 36.6; O2SAT 100
[2024-06-16 20:15] VITALS: BP 118/63; PULSE 70; RESP 16; TEMP 36.6; O2SAT 98
[2024-06-16] MEDS: Zonisamide 100 MG CAPSULE PO (20:18)
[2024-06-16] MEDS: Divalproex Sodium ER 500 MG TAB.ER.24H 1000 MG PO (20:18)
[2024-06-16] MEDS: levETIRAcetam 500 MG TABLET 1500 MG PO (20:18)
[2024-06-16] MEDS: OLANZapine 5 MG TABLET PO (20:19)
--- NOTE | 2024-06-17 06:48 | PC.NURSE ---
At 1999 nurse observed Tiffany sitting on a chair in the dayroom in front of the nursing station. Patient appeared to sway a little and then she slid of the chair onto the floor landing on her buttocks. Nurse took vitals machine out to patient with the ANGELIQUE. Patient reported that she became dizzy for a moment and lost balance on the chair. Patient vitals were WNL and did not hit her head. Nurse did a Neuro assessment on patient and all findings were normal. Patient got up and reported she was fine and just feeling anxious about discharge. Patient was given her HS medications which include several anti-seizure medications. Patient declined a visit from the MD and sat at the table and began working on an art project. No adverse reactions reported to nurse and patient sat in the dayroom for an additional [address] Lizarraga was notified of the incident at 2031.
[2024-06-17 07:36] VITALS: BP 85/53; PULSE 80; RESP 16; TEMP 36.8; O2SAT 100
[2024-06-17] MEDS: Cholecalciferol (Vitamin D3) 25 MCG TABLET PO (09:23)
[2024-06-17] MEDS: Folic Acid 1 MG TABLET PO (09:23)
[2024-06-17] MEDS: Lacosamide 100 MG TABLET 200 MG PO (09:23)
[2024-06-17] MEDS: levETIRAcetam 250 MG TABLET 750 MG PO (09:23)
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
== END 2024-06-17 10:27 | disposition home or self-care (01) | DRG 754 ==
PROVIDERS: Psychiatry & Neurology Psychiatry; Admitting Provider Psychiatry & Neurology Psychiatry; Responsible Provider Registered Nurse; Visit Provider Psychiatry & Neurology Psychiatry
DX: F32.9 Major depressive disorder, single episode, unspecified (principal); R45.851 Suicidal ideations; F44.5 Conversion disorder with seizures or convulsions; G40.909 Epilepsy, unspecified, not intractable, without status epilepticus; Z79.899 Other long term (current) drug therapy
CPT/HCPCS: 36415; 80053; 80061; 80076; 80164; 82140; 83036; 84443

== ENCOUNTER → 2024-06-12 02:18 | Outpatient (BNV) | payer MEDICAID, SELFPAY | PROVIDERS: Admitting Provider Psychiatry & Neurology Psychiatry; Visit Provider Student in an Organized Health Care Education/Training Program | DX: Z00.8 Encounter for other general examination (principal) | CPT/HCPCS: 99222 ==

== ENCOUNTER → 2024-06-12 02:18 | Outpatient (BNV) | payer OTHER, SELFPAY | PROVIDERS: Admitting Provider Psychiatry & Neurology Psychiatry; Visit Provider Psychiatry & Neurology Psychiatry | DX: F39 Unspecified mood [affective] disorder (principal); G40.909 Epilepsy, unspecified, not intractable, without status epilepticus | CPT/HCPCS: 99231; 99232 ==